=== PATIENT | female | born 1940 | race Caucasian/White ===

== ENCOUNTER 2020-04-18 10:31 | Outpatient (CLI) | payer MEDICARE, SELFPAY ==
--- NOTE | ~2020-04-18 | MM_ITS ---
EXAMINATION: MM screening prudence BI w michael HISTORY: Screening mammogram TECHNIQUE: Craniocaudal and mediolateral oblique 3-D tomosynthesis images were obtained and synthetic 2-D images were generated. CAD analysis was submitted and interpreted. COMPARISON: 04/17/2019 diagnostic right digital mammogram and limited right breast ultrasound 04/11/2019, 03/10/2018, 02/27/2016 bilateral digital screening mammogram examinations BREAST PARENCHYMAL COMPOSITION: There are scattered areas of fibroglandular density. FINDINGS: Bilateral benign calcifications. New 3.8 mm mass is noted in the anterior aspect of the upper outer quadrant of the right breast (cran ial caudal Tomosynthesis image /; MLO Tomosynthesis image /). Diagnostic right mammogram and right breast ultrasound examination are recommended. Otherwise there is no evidence of suspicious mass, calcification, or architectural distortion to sugg est malignancy in either breast. There has been no other suspicious interval change. IMPRESSION: 1. New 3.8 mm anterior upper outer quadrant right breast mass. 2. Recommend diagnostic right mammogram and right breast ultrasound examination. BI-RADS Category 0: Incomplete: Needs additional imaging evaluation. Reviewed, dictated and finalized at location A. IMPRESSION: 1. New 3.8 mm anterior upper outer quadrant right breast mass. 2. Recommend diagnostic right mammogram and right breast ultrasound examination . BI-RADS Category 0: Incomplete: Needs additional imaging evaluation.
== END 2020-04-18 10:32 | disposition home or self-care (01) ==
PROVIDERS: PCP Internal Medicine; Visit Provider Internal Medicine
DX: Z12.31 Encounter for screening mammogram for malignant neoplasm of breast (principal)
CPT/HCPCS: 77063; 77067

== ENCOUNTER 2020-04-29 09:47 | Outpatient (CLI) | payer MEDICARE, OTHER, SELFPAY ==
--- NOTE | ~2020-04-29 | MMUS_ITS ---
EXAMINATION: MM diagnostic prudence RT w michael, US breast RT limited HISTORY: Right breast mass on screening mammogram TECHNIQUE: Additional 3-D tomosynthesis images of the right breast were performed and synthetic 2-D i mages were generated. CAD analysis was submitted and interpreted. High resolution limited right breas t ultrasound was performed. COMPARISON: 04/18/2020, 04/17/2019, 04/11/2019, 03/14/2018, 02/27/2016 FINDINGS: MAMMOGRAPHIC FINDINGS: There is a 5 mm oval, obscured, equal density mass in the anterior third of the breast at the 11:00 l ocation 4 cm from the nipple. With spot compression, this has an appearance similar to comparison prudence mograms. There is no architectural distortion or suspicious calcification. ULTRASOUND: There are two adjacent cysts of the breast at the 10:00 location 3 cm from the nipple which do not de monstrate significant interval change since the comparison examination. No suspicious mass is identif ied. IMPRESSION: 1. Right breast cysts corresponding to the mass described on screening mammogram. 2. Recommend routine screening mammography in one year. BI-RADS Category 2: Benign finding(s). Reviewed, dictated and finalized at location A. SURVEYOR IMPRESSION: 1. Right breast cysts corresponding to the mass described on screening mammogra m. 2. Recommend routine screening mammography in one year. BI-RADS Category 2: Benign finding(s).
== END 2020-04-29 09:48 | disposition home or self-care (01) ==
LOC: CHSIMG 09:48
PROVIDERS: PCP Internal Medicine; Visit Provider Internal Medicine
DX: R92.8 Other abnormal and inconclusive findings on diagnostic imaging of breast (principal)
CPT/HCPCS: 76642; 77061; 77065; G0279

== ENCOUNTER 2021-05-02 07:13 | Outpatient (CLI) | payer MEDICARE, OTHER, SELFPAY ==
--- NOTE | ~2021-05-02 | MM_ITS ---
EXAMINATION: MM screening prudence BI w michael HISTORY: Screening mammogram TECHNIQUE: Craniocaudal and mediolateral oblique 3-D tomosynthesis images were obtained and synthetic 2-D images were generated. CAD analysis was submitted and interpreted. COMPARISON: 04/29/2020 diagnostic right mammogram and limited right breast ultrasound 04/18/2020 bilateral screening mammogram 04/17/2019 diagnostic right mammogram and right breast ultrasound 04/11/2019, 03/10/2018 bilateral screening mammogram examinations BREAST PARENCHYMAL COMPOSITION: FINDINGS: There is a circumscribed approximately 3.8 mm opacity anteriorly in the inner aspect of the upper outer right breast, stable since 03/10/2018. Scattered bilateral benign calcifications. There is no evidence of suspicious mass, calcification, or architectural distortion to suggest malignancy in either breast. There has been no suspicious interv al change. IMPRESSION: 1. No mammographic evidence of malignancy. 2. Recommend routine screening mammography in one year. BI-RADS Category 2: Benign finding(s). Reviewed, dictated and finalized at location A. R HELPER
== END 2021-05-02 07:14 | disposition home or self-care (01) ==
LOC: CHSIMG 07:15
PROVIDERS: PCP Internal Medicine; Visit Provider Internal Medicine
DX: Z12.31 Encounter for screening mammogram for malignant neoplasm of breast (principal)
CPT/HCPCS: 77063; 77067

== ENCOUNTER 2021-08-03 21:34 | Emergency (ER) | payer MEDICARE, OTHER, SELFPAY ==
--- NOTE | ~2021-08-03 | CT_ITS ---
EXAMINATION: CT facial bones wo con DATE: 08/03/2021 22:37 INDICATION: Left facial injury. TECHNIQUE: Computed tomography (CT) of the facial bones and maxillofacial region was performed withou t intravenous contrast. Automated exposure control and iterative reconstruction technique were employ ed. The dose-length product was 316.29 mGy-cm. COMPARISON: None. FINDINGS: There is left periorbital hematoma and soft tissue swelling. There are blowout fractures of medial wall and floor of left orbit. There is a small volume of hematoma in the left ethmoid and max illary sinuses. There is leftward deviation of the nasal septum. There is moderate cervical spondylos is. IMPRESSION: 1. Blowout fractures of the medial wall and floor of left orbit. Reviewed, dictated and finalized at location A. ATRIC RADIOLOGIST
--- NOTE | ~2021-08-03 | CT_ITS ---
EXAMINATION: CT brain wo con DATE: 08/03/2021 22:37 INDICATION: Left head injury. TECHNIQUE: Computed tomography (CT) of the head was performed without intravenous contrast. The mA wa s adjusted according to patient size. Iterative reconstruction technique was employed. The dose-lengt h product was 529.67 mGy-cm. COMPARISON: None FINDINGS: There is no intracranial hemorrhage, acute infarction, or abnormal intracranial mass lesion . There are scattered areas of low attenuation in the cerebral white matter, which is within normal l imits for the patient's age. The ventricles are normal in size. There is left periorbital soft tissue swelling. There is a blowout fracture of medial wall of left orbit. The mastoid air cells are normal . IMPRESSION: 1. Normal aging brain. 2. Blowout fracture of medial wall of left orbit. Reviewed, dictated and finalized at location A. ANALYST
[2021-08-03 21:40] VITALS: BP 190/78; PULSE 72; RESP 20; TEMP 36.3; O2SAT 96
--- NOTE | 2021-08-03 21:55 | ED.FALL ---
HPI - Fall General Chief Complaint: Head Injury Stated Complaint: fell/injury above eye Source: patient, family and RN notes reviewed Mode of arrival: ambulatory Limitations: no limitations History of Present Illness HPI Narrative: Patient was walking out of a family house through the garage and tripped over a basket ball falling onto her left face. Swelling to her left eyebrow and abrasion over her left temporal area. complaint: fall Onset (ago): minute(s) (30) Fall from: standing Fall witnessed: yes, by family Place fall occurred: home Loss of consciousness: none Context: tripped/slipped ( Over basketball in the garage) Location of injury: head and face Severity: mild Quality: dull and aching Associated symptoms (after fall): headache Related Data Home Medications Medication Instructions Recorded Confirmed hydrochlorothiazide 25 mg PO DAILY 08/03/21 08/03/21 latanoprost 1 drp EACH EYE DAILY 08/03/21 08/03/21 losartan 100 mg PO DAILY 08/03/21 08/03/21 montelukast 10 mg PO DAILY 08/03/21 08/03/21 Allergies Allergy/AdvReac Type Severity Reaction Status Date / Time No Known Allergies Allergy Verified 08/03/21 21:59 Review of Systems Review of Systems: All systems reviewed & are unremarkable except as noted in HPI and below PMFSH Past Medical History Medical History (Updated 08/03/21 @ 22:53 by Jorge Smith MD) Glaucoma Hypertension Surgical History Surgical History (Updated 08/03/21 @ 22:02 by Jorge Smith MD) H/O hysterectomy for benign disease Hx of cholecystectomy Social History Social History (Updated 08/03/21 @ 22:02 by Jorge Smith MD) Smoking status: Never smoker Exam Const: General: healthy appearing, no acute distress and alert Nutritional Appearance: well nourished and obese centrally obese Orientation/consciousness: patient oriented x3 HENMT: Head: normal to inspection and normocephalic Ears: external ears normal and TM's normal bilaterally General nose exam: Normal external nose present and Normal nares present Face and sinus: abrasion on the left (left temporal), ecchymosis on the left periorbital and Facial tenderness on exam of face and sinuses on the left periorbital Eyes: Conjunctivae: conjunctivae normal Pupils: Equal, round and reactive pupils present EOM: EOMs intact bilaterally Neck: Neck: normal visual inspection Resp: Effort & Inspection: normal respiratory effort Auscultation: clear to auscultation bilaterally Cardio: Rate: regular rate Rhythm: regular rhythm GI: GI Palp: Yes Soft to palpation and No Tenderness to palpation present (GI) Auscultation: normal bowel sounds Back/Spine/Pelvis: Cervical Spine: cervical ROM normal Thoracic/Lumbar Spine: thoraco-lumbar ROM normal Skin: General skin exam: normal color Rashes: no rashes Neuro: General: patient oriented x3, moves all extremities, no focal motor deficits and CN's II-XI intact bilaterally Speech: normal speech Gait exam (Neuro): Normal gait present Extrem: General: normal to inspection and no clubbing, cyanosis or edema Psych: Appearance: grossly normal and well kempt Mental Status: mental status grossly normal Affect: normal affect Attitude: cooperative Thought content: Yes Normal thought content present Course Vital Signs Vital signs: Vital Signs Temperature 36.3 C L 08/03/21 21:40 Pulse Rate 72 08/03/21 21:40 Respiratory Rate 20 08/03/21 21:40 Blood Pressure 190/78 H 08/03/21 21:40 Pulse Oximetry 96 08/03/21 21:40 Temperature 36.2 C L 08/03/21 23:10 Pulse Rate 87 08/03/21 23:10 Respiratory Rate 18 08/03/21 23:10 Blood Pressure 166/87 H 08/03/21 23:10 Pulse Oximetry 97 08/03/21 23:10 Discharge Plan Discharge Clinical Impression: Orbital fracture Qualifiers: Encounter type: initial encounter Fracture type: closed Qualified Code(s): S02.85XA - Fracture of orbit, unspecified, initial encounter for closed fracture Patient Dispos
[2021-08-03] MEDS: NEOMYCIN/POLYMYXIN/BACITRACIN OINTMENT PACKET 1 PACKET (22:20)
[2021-08-03] MEDS: AMOXICILLIN/CLAVULANATE K 875-125 MG TAB 1 TABLET PO (23:00)
[2021-08-03 23:10] VITALS: BP 166/87; PULSE 87; RESP 18; TEMP 36.2; O2SAT 97
== END 2021-08-03 23:12 | disposition home or self-care (01) ==
PROVIDERS: Emergency Provider Emergency Medicine; PCP Internal Medicine
DX: S02.85XA Fracture of orbit, unspecified, initial encounter for closed fracture (principal); W01.0XXA Fall on same level from slipping, tripping and stumbling without subsequent striking against object, initial encounter; I10 Essential (primary) hypertension
CPT/HCPCS: 70450; 70486; 99284; A9270

== ENCOUNTER 2021-10-10 09:30 | Outpatient (CLI) | payer MEDICARE, OTHER, SELFPAY ==
[2021-10-10 10:24] LABS: SARS-CoV-2 RNA PCR Positive (Negative)
== END 2021-10-10 09:31 | disposition home or self-care (01) ==
LOC: CHSLAB 09:33
PROVIDERS: PCP Internal Medicine; Visit Provider Internal Medicine
DX: U07.1 COVID-19 (principal)
CPT/HCPCS: C9803; U0003; U0005

== ENCOUNTER 2021-11-03 09:50 | Outpatient (CLI) | payer MEDICARE, OTHER, SELFPAY ==
--- NOTE | 2021-11-03 10:03 | ECG_ITS ---
Measurements Intervals [place] Rate: 71 P: 55 [place]: 217 QRS: -23 QRSD: 133 T: 26 QT: 452 QTc: 494 Interpretive Statements SINUS RHYTHM WITH FIRST DEGREE AV BLOCK RIGHT BUNDLE BRANCH BLOCK BASELINE ARTIFACT- II, III, AVR, AVF, V5-V6 ABNORMAL ECG Electronically Signed On 11-03-2021 11:25:41 CDT by Leroy Cheung D.O.
== END 2021-11-03 09:51 | disposition home or self-care (01) ==
LOC: CHSCARD 09:54
PROVIDERS: PCP Internal Medicine; Visit Provider Internal Medicine
DX: E78.5 Hyperlipidemia, unspecified (principal); E11.9 Type 2 diabetes mellitus without complications; I10 Essential (primary) hypertension; R01.1 Cardiac murmur, unspecified
CPT/HCPCS: 93005

== ENCOUNTER 2021-11-14 13:16 | Outpatient (CLI) | payer MEDICARE, OTHER, SELFPAY ==
--- NOTE | 2021-11-14 13:30 | ECHO_ITS ---
Patient Info Name: Sylvie Barrientos Age: 81 years : 1940 Gender: Female Ht: 65 in Wt: 190 lbs BSA: 2.02 m2 HR: 73 bpm BP: 211 / 76 mmHg Technical Quality: Fair Exam Date: 11/14/2021 1:28 PM Exam Location: [facility] Patient Status: Outpatient Admit Date: 11/14/2021 Staff Ordering Physician: Jovanny Rea MD Donor Recruitment Manager: Kishor Barber, CAL, RT Attending Provider: Jovanny Rea MD Exam Type: CA echo doppler color flow Study Info Indications R01.1 - Cardiac murmur, unspecified Complete two-dimensional, color flow and Doppler transthoracic echocardiogram is performed. Strain analysis performed. Summary 1. Complete two-dimensional, color flow and Doppler transthoracic echocardiogram is performed. 2. Left ventricular chamber dimension is normal. 3. Left ventricular systolic function is normal, estimated at 65-70%. 4. There is mildly increased left ventricular wall thickness. 5. The left ventricular diastolic function is grade I diastolic dysfunction. 6. E/e' 10 is mildly elevated. 7. Global longitudinal strain is normal at -19.3%. 8. There is severe aortic valve sclerosis. 9. There is moderate aortic valve stenosis with a peak velocity of 424 cm/s, mean gradient of 38 mmHg, and aortic valve area of 1.4 cm2. 10. There is mild aortic valve regurgitation. 11. The mitral valve has moderately calcified leaflets and mildly calcified annulus. 12. There is mild mitral valve regurgitation. 13. There is mild tricuspid valve regurgitation. 14. Mild pulmonary hypertension, estimated pulmonary arterial systolic pressure is 48 mmHg. 15. There is mild pulmonic regurgitation. Left Ventricle E/e' 10 is mildly elevated. Global longitudinal strain is normal at -19.3%. Left ventricular chamber dimension is normal. Left ventricular systolic function is normal, estimated at 65-70%. There is mildly increased left ventricular wall thickness. The left ventricular diastolic function is grade I diastolic dysfunction. Right Ventricle Right ventricular systolic function is normal and with normal TAPSE 2.9 cm. Right ventricular chamber dimension is normal. Left Atria Left atrial chamber dimension is normal. Right Atria Right atrial chamber dimension is normal. Aortic Valve The aortic valve is probable trileaflet. There is severe aortic valve sclerosis. There is moderate aortic valve stenosis with a peak velocity of 424 cm/s, mean gradient of 38 mmHg, and aortic valve area of 1.4 cm2. There is mild aortic valve regurgitation. Pulmonic Valve There is mild pulmonic regurgitation. Mitral Valve The mitral valve has moderately calcified leaflets and mildly calcified annulus. There is no mitral valve stenosis. There is mild mitral valve regurgitation. Tricuspid Valve There is mild tricuspid valve regurgitation. Mild pulmonary hypertension, estimated pulmonary arterial systolic pressure is 48 mmHg. Pericardium/Pleural There is no pericardial effusion. Inferior Vena Cava Normal inferior vena cava with >50% collapse upon inspiration consistent with normal right atrial pressure, 5 mmHg. Aorta The aortic root size at the sinus of Valsalva is normal. Left Ventricular Outflow Tract Name Value Normal LVOT 2D L
== END 2021-11-14 13:17 | disposition home or self-care (01) ==
LOC: CHSIMG 13:19
PROVIDERS: PCP Internal Medicine; Visit Provider Internal Medicine
DX: R01.1 Cardiac murmur, unspecified (principal); E11.9 Type 2 diabetes mellitus without complications; I10 Essential (primary) hypertension; E78.5 Hyperlipidemia, unspecified
CPT/HCPCS: 93306

== ENCOUNTER 2022-06-01 08:13 | Outpatient (CLI) | payer MEDICARE, OTHER, SELFPAY ==
--- NOTE | ~2022-06-01 | MM_ITS ---
EXAMINATION: MM screening [facility] BI w michael HISTORY: Screening TECHNIQUE: Craniocaudal and mediolateral oblique 3-D tomosynthesis images were obtained and synthetic 2-D images were generated. CAD analysis was submitted and interpreted. COMPARISON: Comparison to multiple prior studies sequentially, with oldest reviewed study dated 03/14. BREAST PARENCHYMAL COMPOSITION: There are scattered areas of fibroglandular density. FINDINGS: Stable benign-appearing nodule in the upper outer quadrant of the right breast anteriorly. There is no evidence of suspicious mass, calcification, or architectural distortion to suggest malign vladimir in either breast. There has been no suspicious interval change. IMPRESSION: 1. No mammographic evidence of malignancy. 2. Recommend routine screening mammography in one year. BI-RADS Category 2: Benign finding(s). Reviewed, dictated and finalized at location B. STRESS FITTER
== END 2022-06-01 08:14 | disposition home or self-care (01) ==
LOC: CHSIMG 08:15
PROVIDERS: PCP Internal Medicine; Visit Provider Internal Medicine
DX: Z12.31 Encounter for screening mammogram for malignant neoplasm of breast (principal)
CPT/HCPCS: 77063; 77067

== ENCOUNTER 2022-11-02 12:23 | Outpatient (CLI) | payer MEDICARE, OTHER, SELFPAY ==
--- NOTE | 2022-11-02 01:00 | ECHO_ITS ---
Patient Info Name: Sylvie Barrientos Age: 82 years : 1940 Gender: Female Ht: 63 in Wt: 180 lbs BSA: 1.94 m2 HR: 68 bpm BP: 195 / 92 mmHg Heart Rhythm: Sinus Rhythm Technical Quality: Fair Exam Date: 11/02/2022 12:20 PM Exam Location: [facility] Patient Status: Outpatient Admit Date: 11/02/2022 Staff Ordering Physician: Leroy Cheung DO Net Developer With Wcf: Jayla Greenfield RDCS Attending Provider: Leroy Cheung DO Referring Physician: Jonatan MOSQUERA; Exam Type: CA echo doppler color flow Study Info Indications I35.0 - Nonrheumatic aortic (valve) stenosis Complete two-dimensional, color flow and Doppler transthoracic echocardiogram is performed. Summary 1. Complete two-dimensional, color flow and Doppler transthoracic echocardiogram is performed. 2. Left ventricular chamber dimension is normal. 3. Left ventricular systolic function is hyperdynamic, estimated at >70%. 4. The left ventricular diastolic function is grade I diastolic dysfunction. 5. E/e' 13 is mildly elevated. 6. Left atrial chamber dimension is mildly enlarged. 7. The aortic valve is not well visualized. Probably trileaflet aortic valve. 8. There is moderate to severe aortic valve stenosis based on a peak velocity of 441 cm/s, mean gradient of 48 mmHg, and aortic valve area of 1.2 cm2. 9. There is severe aortic valve sclerosis. 10. There is mild aortic valve regurgitation. 11. The mitral valve has moderately calcified annulus. 12. There is mild to moderate tricuspid valve regurgitation. 13. Mild pulmonary hypertension, estimated pulmonary arterial systolic pressure is 43 mmHg. 14. There is mild pulmonic regurgitation. Left Ventricle E/e' 13 is mildly elevated. Left ventricular chamber dimension is normal. Left ventricular systolic function is hyperdynamic, estimated at >70%. The left ventricular diastolic function is grade I diastolic dysfunction. Right Ventricle Right ventricular systolic function is normal and with normal TAPSE 2.1 cm. Right ventricular chamber dimension is normal. Left Atria Left atrial chamber dimension is mildly enlarged. Right Atria Right atrial chamber dimension is normal. Aortic Valve The aortic valve is not well visualized. Probably trileaflet aortic valve. There is moderate to severe aortic valve stenosis based on a peak velocity of 441 cm/s, mean gradient of 48 mmHg, and aortic valve area of 1.2 cm2. There is severe aortic valve sclerosis. There is mild aortic valve regurgitation. Pulmonic Valve There is mild pulmonic regurgitation. Mitral Valve The mitral valve has moderately calcified annulus. There is no mitral valve stenosis. There is no mitral valve regurgitation. Tricuspid Valve There is mild to moderate tricuspid valve regurgitation. Mild pulmonary hypertension, estimated pulmonary arterial systolic pressure is 43 mmHg. Pericardium/Pleural There is no pericardial effusion. Inferior Vena Cava Normal inferior vena cava with >50% collapse upon inspiration consistent with normal right atrial pressure, 5 mmHg. Aorta The aortic root size at the sinus of Valsalva is normal. Left Ventricular Outflow Tract Name Value Normal LVOT 2D LVOT Diameter 2.0 cm LVOT Doppler LVOT Peak Velocity
== END 2022-11-02 12:24 | disposition home or self-care (01) ==
LOC: CHSIMG 12:25
PROVIDERS: PCP Internal Medicine; Visit Provider Internal Medicine Cardiovascular Disease
DX: I35.0 Nonrheumatic aortic (valve) stenosis (principal); I27.20 Pulmonary hypertension, unspecified; I37.1 Nonrheumatic pulmonary valve insufficiency
CPT/HCPCS: 93306

== ENCOUNTER 2023-06-04 07:20 | Outpatient (CLI) | payer MEDICARE, OTHER, SELFPAY ==
--- NOTE | ~2023-06-04 | MM_ITS ---
EXAMINATION: MM screening prudence BI w michael HISTORY: Screening mammogram TECHNIQUE: Craniocaudal and mediolateral oblique 3-D tomosynthesis images were obtained and synthetic 2-D images were generated. CAD analysis was submitted and interpreted. COMPARISON: 06/01/2022, 05/02/2021, 04/29/2020 BREAST PARENCHYMAL COMPOSITION:There are scattered areas of fibroglandular density. FINDINGS: No suspicious mass, calcification, or architectural distortion are identified in either freddy ast to suggest malignancy. There has been no suspicious interval change. IMPRESSION: No mammographic evidence of malignancy. Recommend routine screening mammography in one year. BI-RADS Category 1: Negative Reviewed, dictated and finalized at location . ATRIC IMMUNOLOGIST
== END 2023-06-04 07:21 | disposition home or self-care (01) ==
LOC: CHSIMG 07:23
PROVIDERS: PCP Internal Medicine; Visit Provider Internal Medicine
DX: Z12.31 Encounter for screening mammogram for malignant neoplasm of breast (principal)
CPT/HCPCS: 77063; 77067

== ENCOUNTER 2023-08-03 15:42 | Outpatient (CLI) | payer MEDICARE, OTHER, SELFPAY ==
--- NOTE | ~2023-08-03 | XR_ITS ---
XR hand RT min 3V DATE: 08/03/2023 16:04 INDICATION: Acute right hand pain TECHNIQUE: 3 views COMPARISON: None FINDINGS: There is osteopenia. There is chondrocalcinosis at the triangular cartilage and wrist joints. Severe osteoarthritic changes noted at the triscaphe joint. There is mild osteoarthritic arthritis at the first carpometacarpal, first metacarpophalangeal joint and more prominent osteoarthritic change at the second and third metacarpophalangeal joints and particularly severe osteoarthritic change at m ultiple interphalangeal joints, most notably of the proximal interphalangeal joint of the third digit where there is severe joint space narrowing, periarticular spurring, degenerative cyst formation, wi th surrounding soft tissue swelling. No fracture or dislocation, periosteal reaction or bone destruction is detected. No erosive change is noted. IMPRESSION: Prominent polyarticular osteophyte is Osteopenia Chondrocalcinosis Reviewed, dictated and finalized at location L. INUITY WRITER
== END 2023-08-03 15:43 | disposition home or self-care (01) ==
LOC: CHSIMG 15:45
PROVIDERS: PCP Internal Medicine; Visit Provider Internal Medicine
DX: M19.041 Primary osteoarthritis, right hand (principal); M85.88 Other specified disorders of bone density and structure, other site; M11.241 Other chondrocalcinosis, right hand
CPT/HCPCS: 73130

== ENCOUNTER 2023-10-25 08:23 | Outpatient (CLI) | payer MEDICARE, OTHER, SELFPAY ==
--- NOTE | 2023-10-25 08:32 | ECHO_ITS ---
Patient Info Name: Sylvie Barrientos Age: 83 years : 1940 Gender: Female Ht: 60 in Wt: 180 lbs BSA: 1.90 m2 HR: 70 bpm Heart Rhythm: Sinus Rhythm Technical Quality: Good Exam Date: 10/25/2023 8:31 AM Exam Location: Echo Lab Patient Status: Outpatient Admit Date: 10/25/2023 Staff Ordering Physician: Leroy Cheung DO Hog Tender: Pako Xavier RDCS Attending Provider: Leroy Cheung DO Referring Physician: Jonatan MOSQUERA; Exam Type: CA echo doppler color flow Study Info Indications - NONRHEUMATIC AORTIC VALVE STENOSIS Complete two-dimensional, color flow and Doppler transthoracic echocardiogram is performed. Summary 1. Complete two-dimensional, color flow and Doppler transthoracic echocardiogram is performed. 2. Left ventricular chamber dimension is normal. 3. Left ventricular systolic function is normal, estimated at 65-70%. 4. The left ventricular diastolic function is grade I diastolic dysfunction. 5. E/e' 11 is mildly elevated. 6. Left atrial chamber dimension is mildly enlarged. 7. Right atrial chamber dimension is mildly enlarged. 8. There is severe aortic valve sclerosis. 9. There is trace aortic valve regurgitation. 10. There is moderate to severe aortic valve stenosis with valve area of 1.1 cm2, mean gradient of 40 mmHg, and peak velocity of 3.1 m/s. 11. The mitral valve has mildly calcified annulus. 12. There is trace tricuspid valve regurgitation. Left Ventricle E/e' 11 is mildly elevated. Left ventricular chamber dimension is normal. Left ventricular systolic function is normal, estimated at 65-70%. The left ventricular diastolic function is grade I diastolic dysfunction. Right Ventricle Right ventricular systolic function is normal and with normal TAPSE 2.8 cm. Right ventricular chamber dimension is normal. Left Atria Left atrial chamber dimension is mildly enlarged. Right Atria Right atrial chamber dimension is mildly enlarged. Aortic Valve There is moderate to severe aortic valve stenosis with valve area of 1.1 cm2, mean gradient of 40 mmHg, and peak velocity of 3.1 m/s. The aortic valve is trileaflet. There is severe aortic valve sclerosis. There is trace aortic valve regurgitation. Pulmonic Valve There is no pulmonic regurgitation. Mitral Valve The mitral valve has mildly calcified annulus. There is no mitral valve stenosis. There is no mitral valve regurgitation. Tricuspid Valve No pulmonary hypertension, estimated pulmonary arterial systolic pressure is 29 mmHg. There is trace tricuspid valve regurgitation. Pericardium/Pleural There is no pericardial effusion. Inferior Vena Cava Normal inferior vena cava with >50% collapse upon inspiration consistent with normal right atrial pressure, 5 mmHg. Aorta The aortic root size at the sinus of Valsalva is normal. Tricuspid Valve Name Value Normal Estimated PAP/RSVP RA Pressure 5 mmHg <=5 Report Signatures
== END 2023-10-25 08:24 | disposition home or self-care (01) ==
LOC: CHSIMG 08:26
PROVIDERS: PCP Internal Medicine; Visit Provider Internal Medicine Cardiovascular Disease
DX: I35.0 Nonrheumatic aortic (valve) stenosis (principal)
CPT/HCPCS: 93306

== ENCOUNTER 2024-05-25 08:39 | Outpatient (CLI) | payer MEDICARE, OTHER, SELFPAY ==
--- NOTE | ~2024-05-25 | US_ITS ---
EXAMINATION: US aorta [facility] scr[facility] DATE: 05/25/2024 09:08 INDICATION: Abdominal aortic aneurysm screening. TECHNIQUE: Grayscale, color Doppler, and pulsed Doppler images of the aorta and common iliac arteries were obtained. COMPARISON: None. FINDINGS: The aorta is normal in caliber. The right common iliac artery is normal in caliber. The left common i liac artery is normal in caliber. IMPRESSION: 1. No abdominal aortic aneurysm. Reviewed, dictated and finalized at location A. 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
--- NOTE | ~2024-05-25 | XR_ITS ---
EXAMINATION: XR chest 2V 05/25/2024 09:13 INDICATION: Shortness of breath PROCEDURE: 2 view chest COMPARISON: Comparison to multiple prior studies sequentially, with oldest reviewed study dated 08/18. FINDINGS: The lungs are clear. Calcified granuloma right lower lung. The cardiomediastinal silhouette is within normal limits. There are no pleural effusions. There is no pneumothorax suspected. Mode rate thoracic spondylosis with accentuated kyphosis and scoliosis. IMPRESSION: 1: NO ACUTE CARDIOPULMONARY DISEASE. Reviewed, dictated and finalized at location B. WORKER OR ESCORT
== END 2024-05-25 08:40 | disposition home or self-care (01) ==
PROVIDERS: PCP Internal Medicine; Visit Provider Internal Medicine
DX: L92.8 Other granulomatous disorders of the skin and subcutaneous tissue (principal); Z13.6 Encounter for screening for cardiovascular disorders
CPT/HCPCS: 71046; 76706

== ENCOUNTER 2024-06-20 13:06 | Outpatient (CLI) | payer MEDICARE, OTHER, SELFPAY ==
--- NOTE | ~2024-06-20 | MM_ITS ---
EXAMINATION: MM screening prudence BI w michael HISTORY: Screening mammogram TECHNIQUE: Craniocaudal and mediolateral oblique 3-D tomosynthesis images were obtained and synthetic 2-D images were generated. CAD analysis was submitted and interpreted. COMPARISON: 06/04/2023, 06/01/2022 BREAST PARENCHYMAL COMPOSITION:Not Dense. The breasts are almost entirely fatty FINDINGS: No suspicious mass, calcification, or architectural distortion are identified in either freddy ast to suggest malignancy. There has been no suspicious interval change. IMPRESSION: No mammographic evidence of malignancy. Recommend routine screening mammography in one year. BI-RADS Category 1: Negative Reviewed, dictated and finalized at location .
== END 2024-06-20 13:07 | disposition home or self-care (01) ==
LOC: CHSIMG 13:10
PROVIDERS: PCP Internal Medicine; Visit Provider Internal Medicine
DX: Z12.31 Encounter for screening mammogram for malignant neoplasm of breast (principal)
CPT/HCPCS: 77063; 77067

== ENCOUNTER 2024-10-25 11:12 | Outpatient (CLI) | payer MEDICARE, OTHER, SELFPAY ==
--- NOTE | ~2024-10-25 | XR_ITS ---
XR knee RT 3V Ordering provider: Jovanny Rea MD History: . Medial RT knee pain, chronic, getting worse . Comparison: None. FINDINGS: BONES: No acute fracture or dislocation. JOINT SPACES: Severe narrowing of the medial compartment. Marginal osteophytes are noted in the knee and patella. SOFT TISSUES: Normal. IMPRESSION: No acute osseous abnormality right knee. Severe osteoarthritic changes. Reviewed, dictated and finalized at location A.
--- OUTSIDE RECORDS SUMMARY | 2024-10-25 12:01 | XMS_ITS | Clinical Summary ---
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 Gender Identity Not on file Sexual Orientation Not on file Plan of Treatment Health Maintenance Due Date Last Done Comments DTaP, Tdap and Td Vaccines ( 1 - Tdap) 1957 Pneumococcal Vaccine: 50+ Ye ars (1 of 1 - PCV) 1988 Zoster Vaccines (1 of 2) 1988 RSV Immunization or 60+ Years (1 - 1-dose 75+ series) 2013 COVID-19 Vaccine ( - 2023-2 5 season) 2024 Meningococcal B Vaccine Aged Out No l onger eligible based on patient's age to complete this topic Meningococcal Vaccine Aged Out No yolanda sho eligible based on patient's age to complete this topic RSV Immunizations Under 20 Months Aged Out No longer eligible based on patient's age to complete this topic
--- OUTSIDE RECORDS SUMMARY | 2024-10-25 12:01 | XMS_ITS | Continuity of Care Document ---
Author Organization [facility] Address [address] [place] [address] [place] [address] Phone Care Team Providers Care Drawer In Name Role Phone Jef Choi MD Unavailable [...] Report Eye Exam & Treatment Office/outpatient Visit, [facility] Advance Directives Directive Yes / No Effective Date File Name No Information Encounters Encounter Description Practice Location Reason(s) For Visit Diagnoses Date Provider Providers Copied on Encounter Office/outpa tient Visit, Est [facility], [address], [place], [place], [id number], [place] tel:[phone] SEC Avery MORAN Professional Dilated exam (chief complaint) Open fracture of left orbit with routine healing, subsequent encounterPrima ry open-angle glaucoma, bilateral, moderate stage 2 Jimbo Fuchs. [address] [facility], [address], [place], [place], [id number], . tel:[phone] Referring Provider: Gilberto Renetta OD, [address] [place] [address], [address]. tel:[phone] [facility], [address], [place], [place], [id number], tel:[phone] SEC Avery MORAN Professional Complete Exam (chief complaint) Primary open-angle glaucoma, bilateral, mild stageOpen fracture of left orbit with routine healing, subsequent encounterAge-r elated nuclear cataract, bilateralMacul ar drusen, left 2 Jimbo Fuchs. [address], [facility] [place], [id number], . tel:[phone] Referring Provider: Gilberto Jackson OD, [address] [place] [address], [address]. tel:[phone] Office/outpa tient Visit, [facility], [address], [place], [place], [id number], [place] tel:[phone] SEC Avery DEAN Professional WIE (chief complaint) Primary open-angle glaucoma, bilateral, mild stageOpen fracture of left orbit, initial encounterOpen fracture of medial wall of left orbit, initial encounter 2 Jimbo Fuchs. [address], [facility] [address], [place], [place], [id number], . tel:[phone] Referring Provider: Gilberto Jackson OD, [address] [place] [address], [address]. tel:[phone] Family History Family Member Type Diagnosis Age At Onset No Information Payers Payer name Insurance type Covered libertarian ID Authorniaa tiangy(s) [place] MB [id number] [facility] [id number] Social History Type Description Quantity Date Captured [...] qhs.Pt states the brow over OS is dye tank tender and a little swollen. Pt denies [...] qhs.Pt states the brow over OS is dye tank tender and a little swollen. Pt denies [...]
== END 2024-10-25 11:13 | disposition home or self-care (01) ==
PROVIDERS: PCP Internal Medicine; Visit Provider Internal Medicine
DX: M25.561 Pain in right knee (principal); M17.11 Unilateral primary osteoarthritis, right knee
CPT/HCPCS: 73562

== ENCOUNTER 2024-11-23 07:22 | Outpatient (CLI) | payer MEDICARE, OTHER, SELFPAY ==
--- OUTSIDE RECORDS SUMMARY | 2024-11-23 07:27 | XMS_ITS | Referral Summary ---
Author Organization [facility] Address [address] [place] [address] Care Team Providers Care Phlebotomist Lab Assistant Name Role Phone Jovanny Rea MD Primary Care Provider [phone] Allergies No known active allergies Medications losartan-hydroc hlorothiazide (HYZAAR) 100-25 mg per tablet 8 Active KLOR-CON M20 20 mEq CR tablet 8 Active montelukast (SINGULAIR) 10 mg tablet 8 Active pravastatin (PRAVACHOL) 10 mg tablet 8 Active predniSONE (DELTASONE) 10 mg tabletIndicatio ns:Irritant contact dermatitis due to cosmetics Take 4 tabs day 1 & 2, 3 tabs days 3 & 4, 2 tabs days 5 & 6, 1 tab days 7-10 22 tablet 3 Active triamcinolone (KENALOG) 0.1 % creamIndication s:Irritant contact dermatitis due to cosmetics Apply to affected area 1-2 times daily as needed. 30 g 5 3 Active hydroCHLOROthia zide (HYDRODIURIL) 25 mg tablet 3 Active methylPREDNISol one (MEDROL DOSEPACK) 4 mg Dosepack TAKE 6 TABLETS ON DAY 1 DIRECTED ON PACKAGE AND DECREASE BY 1 TAB EACH DAY FOR A TOTAL OF 6 DAYS 3 Active Paxlovid tablets,dose pack tablets in a dose pack TAKE BY ORAL ROUTE 2 TIMES PER DAY PER PACKAGE DIRECTIONS FOR 5 DAYS 3 Active oseltamivir (TAMIFLU) 75 mg capsule Take 1 capsule (75 mg total) by mouth 2 (two) times a day 3 Active Active Problems Problem Noted Date Diagnosed Date Encounter for screening colonoscopy 04/30/2023 Screening for colon cancer 02/25/2018 Overview (02/25/2018): Added automatically from request for surgery [id number] Social History Tobacco Use Types Packs/Day Years Used Date Smoking Tobacco: Never Smokeless Tobacco: Never Tobacco Cessation:Counseling Given: Not Answered Personal Safety Answer Date Recorded Have you ever been in or are you currently in a harmful physical or emotional relationship or is someone making you feel afraid or unsafe? 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 Gender Identity Not on file Sexual Orientation Not on file Last Filed Vital Signs Vital Sign Reading Time Taken Comments Blood Pressure 160/80 07/16/2023 11:37 AM ARTIFICIAL BREEDING TECHNICIAN Pulse 73 07/16/2023 11:37 AM ARTIFICIAL BREEDING TECHNICIAN Temperature 36.9 C (98.5 F) 07/16/2023 11:37 AM ARTIFICIAL BREEDING TECHNICIAN Respiratory Rate 16 07/16/2023 11:37 AM ARTIFICIAL BREEDING TECHNICIAN Oxygen Saturation 95% 07/16/2023 11:37 AM ARTIFICIAL BREEDING TECHNICIAN Inhaled Oxygen Concentration - - Weight 79.4 kg (175 lb) 07/16/2023 9:38 AM ARTIFICIAL BREEDING TECHNICIAN Height 160 cm (5' 3) 07/16/2023 9:38 AM ARTIFICIAL BREEDING TECHNICIAN Body Mass Index 31 07/16/2023 9:38 AM ARTIFICIAL BREEDING TECHNICIAN Plan of Treatment Not on file Insurance MEDICARE FOR LIFE MEDICARE FOR LIFE Advance Directives For more information, please contact: [phone] * Full Code (Latest Code Status on File) Date Activated Date Inactivated Comments 07/16/2023 9:29 AM 07/16/2023 4:28 PM * Full Code Date Activated Date Inactivated Comments 07/16/2023 9:29 AM 07/16/2023 9:29 AM * Full Code Date Activated Date Inactivated Comments 04/12/2018 7:59 AM 04/12/2018 11:35 AM * Full Code Date Activated Date Inactivated Comments 04/12/2018 7:59 AM 04/12/2018 7:59 AM Care Teams Phlebotomist Lab Assistant Relationship Specialty Start Date End Date Jovanny Rea MD PCP - General Internal Medicine 02/25/18
--- OUTSIDE RECORDS SUMMARY | 2024-11-23 07:27 | XMS_ITS | Clinical Summary ---
Author Organization [facility] Address [address] [place] [address] Care Team Providers Care Columnist Name Role Phone Jovanny Rea MD Primary Care Provider [phone] Allergies No known active allergies Medications losartan-hydroc [...] (02/25/2018): Added automatically from request for surgery [id number] Surgical History Surgery Date Site/Laterality Comments COLONOSCOPY over 10 yrs ago CHOLECYSTECTOMY HYSTERECTOMY COLONOSCOPY 03/21/2018 - 04/20/2018 Medical History Medical History Date Comments Hypertension Hyperlipidemia Coronary artery disease Family History Medical History Relation Name Comments Colon cancer Brother Relation Name Status Comments Brother Social History Tobacco Use Types Packs/Day Years [...] on file 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 Gender Identity Not on file Sexual Orientation Not on file Obstetrics History Last Filed Vital Signs Vital Sign Reading Time Taken Comments Blood Pressure 160/80 07/16/2023 11:37 AM TAPPET ADJUSTER Pulse 73 07/16/2023 11:37 AM TAPPET ADJUSTER Temperature 36.9 C (98.5 F) 07/16/2023 11:37 AM TAPPET ADJUSTER Respiratory Rate 16 07/16/2023 11:37 AM TAPPET ADJUSTER Oxygen Saturation 95% 07/16/2023 11:37 AM TAPPET ADJUSTER Inhaled Oxygen Concentration - - Weight 79.4 kg (175 lb) 07/16/2023 9:38 AM TAPPET ADJUSTER Height 160 cm (5' 3) 07/16/2023 9:38 AM TAPPET ADJUSTER Body Mass Index 31 07/16/2023 9:38 AM TAPPET ADJUSTER Plan of Treatment Health Maintenance Due Date Last Done Comments Depression Screening 1940 Fall Risk Assessment 1940 Hepatitis B Screening 1956 Zoster Vaccine (1 of 2) 1988 Well Visit 65+ 2003 Pneumococcal vaccine 65+ (2 of 2 - PCV) 02/05/2021 02/06/2020, 12/11/2013, 06/21/2007 Covid-19 Vaccine ( - 2023-2 5 season) 2024 04/19/2022, 07/08/2021, 09/20/2020, Additional history exists Influenza Vaccine (Season Ended) 2025 03/04/2021, 03/30/2019, 02/15/2017, Additional history exists DTaP/Tdap/Td Vaccine (2 - Td or Tdap) 03/04/2031 03/04/2021 Insurance MEDICARE [employer] MEDICARE FOR LIFE Advance Directives For more information, please contact: [phone] * Full Code (Latest Code Status on File) Date Activated Date Inactivated Comments 07/16/2023 9:29 AM 07/16/2023 4:28 PM * Full Code Date Activated Date Inactivated Comments 07/16/2023 9:29 AM 07/16/2023 9:29 AM * Full Code Date Activated Date Inactivated Comments 04/12/2018 7:59 AM 04/12/2018 11:35 AM * Full Code Date Activated Date Inactivated Comments 04/12/2018 7:59 AM 04/12/2018 7:59 AM Care Teams Columnist Relationship Specialty Start Date End Date Jovanny Rea MD PCP - General Internal Medicine 02/25/18
--- OUTSIDE RECORDS SUMMARY | 2024-11-23 07:27 | XMS_ITS | Continuity of Care Document ---
Author Organization [facility] Address [address] [place] [address] [place] [address] Phone Care Team Providers Care Material Assistant Name Role Phone Jef Choi MD Unavailable Unavailable Allergies, Adverse Reactions, Alerts Substance Reaction Status Criticality No Known Allergies Active No Inform ation Medications Medication Instructions Dosage Effective Dates (start - stop) Status Comments losartan 100 mg tablet take 1 tablet by oral route every day 100 MG - Active hydrochlorothiazide 12.5 mg tablet take 1 tablet by oral route every day 12.5 MG - Active montelukast 10 mg tablet take 1 tablet b y oral route every day in the evening 10 MG - Active latanoprost 0.005 % eye drops instill 1 drop by ophthalmic route every day in both eyes in the evening 1 drop - Active Procedures Procedure Date Fundus Photography W/ Report Office/outpatient Visit, Est Fundus Photography W/ Report Eye Exam & Treatment Office/outpatient Visit, [facility] Advance Directives Directive Yes / No Effective Date File Name No Information Encounters Encounter Description Practice Location Reason(s) For Visit Diagnoses Date Provider Providers Copied on Encounter Office/outpa tient Visit, Est [facility], [address], [place], [place], [id number], [place] tel:[phone] SEC Avery MORAN Professional Dilated exam (chief complaint) Open fracture of left orbit with routine healing, subsequent encounterPrima ry open-angle glaucoma, bilateral, moderate stage 2 Jimbo Fuchs. [address] [facility], [address], [place], [place], [id number], . tel:[phone] Referring Provider: Gilberto Renetta OD, [address] [place] [address], [address]. tel:[phone] [facility], [address], [place], [place], [id number], tel:[phone] SEC Avery MORAN Professional Complete Exam (chief complaint) Primary open-angle glaucoma, bilateral, mild stageOpen fracture of left orbit with routine healing, subsequent encounterAge-r elated nuclear cataract, bilateralMacul ar drusen, left 2 Jimbo Fuchs. [address], [facility] [place], [id number], . tel:[phone] Referring Provider: Gilberto Jackson OD, [address] [place] [address], [address]. tel:[phone] Office/outpa tient Visit, [facility], [address], [place], [place], [id number], [place] tel:[phone] SEC Avery DEAN Professional WIE (chief complaint) Primary open-angle glaucoma, bilateral, mild stageOpen fracture of left orbit, initial encounterOpen fracture of medial wall of left orbit, initial encounter 2 Jimbo Fuchs. [address], [facility] [address], [place], [place], [id number], . tel:[phone] Referring Provider: Gilberto Jackson OD, [address] [place] [address], [address]. tel:[phone] Family History Family Member Type Diagnosis Age At Onset No Information Payers Payer name Insurance type Covered green party ID Authorniaa tiangy(s) [place] [id number] [facility] CI [id number] Social History Type Description Quantity Date Captured [...] qhs.Pt states the brow over OS is pressure steamer tender and a little swollen. Pt denies [...] qhs.Pt states the brow over OS is pressure steamer tender and a little swollen. Pt denies [...]
--- NOTE | 2024-11-23 07:42 | ECHO_ITS ---
Patient Info Name: Sylvie Barrientos Age: 84 years : 1940 Gender: Female Ht: 63 in Wt: 180 lbs BSA: 1.94 m2 HR: 68 bpm BP: 172 / 83 mmHg Technical Quality: Fair Exam Date: 11/23/2024 7:48 AM Patient Status: O Admit Date: 11/23/2024 Exam Type: CA echo doppler color flow Complete two-dimensional, color flow and Doppler transthoracic echocardiogram is performed. It Infrastructure Engineer: Judy Dickey Attending Provider: Leroy Cheung DO Summary 1. Complete two-dimensional, color flow and Doppler transthoracic echocardiogram is performed. 2. Left ventricular chamber dimension is normal. 3. Left ventricular systolic function is normal, estimated at 65-70. 4. There is moderate concentric increased left ventricular wall thickness. 5. The left ventricular diastolic function is grade I diastolic dysfunction. 6. E/e' 11 is mildly elevated. 7. Left atrial chamber dimension is mildly enlarged. 8. There is severe aortic valve sclerosis. 9. There is moderate aortic valve stenosis with a peak velocity of 440 cm/s, mean gradient of 52 mmHg, and aortic valve area of 1.3 cm2. 10. There is mild to moderate aortic valve regurgitation. 11. The mitral valve has mildly calcified leaflets and a mildly calcified annulus. 12. There is mild mitral valve regurgitation. 13. There is mild tricuspid valve regurgitation. 14. Mild pulmonary hypertension, estimated pulmonary arterial systolic pressure is 44 mmHg. 15. There is trace pulmonic regurgitation. Left Ventricle E/e' 11 is mildly elevated. Left ventricular chamber dimension is normal. Left ventricular systolic function is normal, estimated at 65-70. There is moderate concentric increased left ventricular wall thickness. The left ventricular diastolic function is grade I diastolic dysfunction. Right Ventricle Right ventricular chamber dimension is normal. Right ventricular systolic function is normal and with normal TAPSE 2.6 cm. Left Atria Left atrial chamber dimension is mildly enlarged. Right Atria Right atrial chamber dimension is normal. Aortic Valve The aortic valve is probable trileaflet. There is severe aortic valve sclerosis. There is moderate aortic valve stenosis with a peak velocity of 440 cm/s, mean gradient of 52 mmHg, and aortic valve area of 1.3 cm2. There is mild to moderate aortic valve regurgitation. Pulmonic Valve There is trace pulmonic regurgitation. Mitral Valve The mitral valve has mildly calcified leaflets and a mildly calcified annulus. There is no mitral valve stenosis. There is mild mitral valve regurgitation. Tricuspid Valve There is mild tricuspid valve regurgitation. Mild pulmonary hypertension, estimated pulmonary arterial systolic pressure is 44 mmHg. Pericardium/Pleural There is no pericardial effusion. Inferior Vena Cava Normal inferior vena cava with >50% collapse upon inspiration consistent with normal right atrial pressure, 5 mmHg. Aorta The aortic root size at the sinus of Valsalva is normal. Left Ventricular Outflow Tract Name Value Normal LVOT 2D LVOT Diameter 2.0 cm LVOT Doppler LVOT Peak Velocity 153 cm/s LVOT Peak Gradient 9 mmHg LVOT Mean Gradient 7 mmHg LVOT VTI 44 cm LVOT VTI/AV VTI Ratio 0.4 LVOT Stroke Volume 139 ml LVOT CO 23.6 l/min LVOT CI 12.2 l/min/m2 Pulmonic Valve Name Value Normal PV Doppler PV Peak Velocity 86 cm/s PV Peak Gradient 3 mmHg Mitral Valve Name Value Normal MV Diastolic Function MV E Peak Velocity 55 cm/s MV A Peak Velocity 112 cm/s MV E/A 0.5 MV Decel Time (PW) 494 ms MV Annular TDI MV E/e' (Septal) 12.8 MV E/e' (Lateral) 9.6 MV E/e' (Average) 11.2 Tricuspid Valve Name Value Normal TV Regurgitation Doppler TR Peak Velocity 311 cm/s TR Peak Gradient 39 mmHg Estimated PAP/RSVP RA Pressure 5 mmHg <=5 PA Systolic Pressure 44 mmHg <36 RV Systolic Pressure 44 mmHg <36 TV Annular TDI TV Lateral Hellen s' Velocity 13.4 cm/s >=9.5 Aorta Name Value Normal Ascending Aorta Ao Root Diameter (MM) 3.0 cm Ao Root Diam Index (MM) 1.6 cm/m2 Aortic Valve Name Value Normal AV Doppler AV Peak Velocity 440 cm/s AV Peak Gradient 77 mmHg AV Mean Gradient 52 mmHg AV VTI 108 cm AV Area (Cont Eq VTI) 1.3 cm2 >=3.0 AV Area (Cont Eq Bhaskar) 1.1 cm2 AV DI (Bhaskar) 0.35 AV Regurgitation 2D LVOT Area 3.2 cm2 Ventricles Name Value Normal LV Dimensions 2D/MM IVS Diastolic Thickness (2D) 1.5 cm 0.6-1.0 LVID Diastole (2D) 3.7 cm 3.8-5.2 LVIW Diastolic Thickness (2D) 1.5 cm 0.6-0.9 LVID Systole (2D) 2.6 cm 2.2-3.5 LVOT Diameter 2.0 cm LV Mass (2D Cubed) 216.11 g 67.00-162.00 LV Mass Index (2D Cubed) 112 g/m2 43-95 Relative Wall Thickness (2D) 0.81 <=0.42 LV Fractional Shortening/Ejection Fraction 2D/MM LV Fractional Shortening (2D) 30 % 27-45 LV EF (2D Teichholz) 59 % LV Diastolic Volume (4C MOD) 95 ml LV EF (4C MOD) 76 % LV Diastolic Volume (2C MOD) 77 ml LV EF (2C MOD) 81 % LV Diastolic Volume (BP MOD) 85 ml 46-106 LV Diastolic Volume Index (BP MOD) 44 ml/m2 29-61 LV Systolic Volume (BP MOD) 17 ml 14-42 LV Systolic Volume Index (BP MOD) 9 ml/m2 8-24 LV EF (BP MOD) 80 % 54-74 LV Diastolic Length (4C) 8.5 cm LV Systolic Length (4C) 6.7 cm LV Stroke Volume (4C MOD) 72 ml RV Dimensions 2D/MM RVID Diastole (2D) 3.9 cm 2.1-3.5 Atria Name Value Normal LA Dimensions LA Dimension (MM) 3.8 cm 2.7-3.8 LA Volume (4C A-L) 52 ml LA Volume (BP A-L) 50 ml RA Dimensions RA Systolic Major [place] Length (4C) 4.7 cm 2.2-2.8 RA Area (4C) 15.5 cm2 <=18.0 Report Signatures
== END 2024-11-23 07:23 | disposition home or self-care (01) ==
PROVIDERS: PCP Internal Medicine; Visit Provider Internal Medicine Cardiovascular Disease
DX: R93.1 Abnormal findings on diagnostic imaging of heart and coronary circulation (principal); I35.0 Nonrheumatic aortic (valve) stenosis
CPT/HCPCS: 93306

== ENCOUNTER 2025-02-25 18:37 | Emergency (ER) | payer MEDICARE, OTHER, SELFPAY ==
--- OUTSIDE RECORDS SUMMARY | 2021-11-18 04:45 | XMS_ITS | Continuity of Care Document ---
Author Organization Formerly [facility] Address [address] [place] [address] [place] [address] Phone Care Team Providers Care Stick Welder Name Role Phone Jef Choi MD Unavailable Unavailable Allergies, Adverse Reactions, Alerts Substance Reaction Status Criticality No Known Allergies Active No Inform ation Medications Medication Instructions Dosage Effective Dates (start - stop) Status Comments latanoprost 0.005 % eye drops instill 1 drop by ophthalmic route every day in both eyes in the evening 1 drop - Active montelukast 10 mg tablet take 1 tablet b y oral route every day in the evening 10 MG - Active hydrochlorothiazide 12.5 mg tablet take 1 tablet by oral route every day 12.5 MG - Active losartan 100 mg tablet take 1 tablet by oral route every day 100 MG - Active Procedures Procedure Date Fundus Photography W/ Report Office/outpatient Visit, Est Fundus Photography W/ Report Eye Exam & Treatment Office/outpatient Visit, [facility] Advance Directives Directive Yes / No Effective Date File Name No Information Encounters Encounter Description Practice Location Reason(s) For Visit Diagnoses Date Provider Providers Copied on Encounter Office/outpa tient Visit, [facility], [address], [place], [place], [id number], [place] tel:[phone] SEC Avery MORAN Professional Dilated exam (chief complaint) Open fracture of left orbit with routine healing, subsequent encounterPrima ry open-angle glaucoma, bilateral, moderate stage 2 Jimbo Fuchs. [address], [address], [place], [place], [id number], . tel:[phone] Referring Provider: Gilberto Renetta OD, [address] [place] [address], [address]. tel:[phone] [facility], [address], [place], [place], [id number], tel:[phone] SEC Avery MORAN Professional Complete Exam (chief complaint) Primary open-angle glaucoma, bilateral, mild stageOpen fracture of left orbit with routine healing, subsequent encounterAge-r elated nuclear cataract, bilateralMacul ar drusen, left 2 Jimbo Fuchs. [address], [facility] [place], [id number], . tel:[phone] Referring Provider: Gilberto Jackson OD, [address] [place] [address], [address]. tel:[phone] Office/outpa tient Visit, [facility], [address], [place], [place], [id number], [place] tel:[phone] SEC Avery DEAN Professional WIE (chief complaint) Primary open-angle glaucoma, bilateral, mild stageOpen fracture of left orbit, initial encounterOpen fracture of medial wall of left orbit, initial encounter 2 Jimbo Fuchs. [address], [facility] [address], [place], [place], [id number], . tel:[phone] Referring Provider: Gilberto Jackson OD, [address] [place] [address], [address]. tel:[phone] Family History Family Member Type Diagnosis Age At Onset No Information Payers Payer name Insurance type Covered libertarian ID Authorniaa tiangy(s) [place] [id number] [facility] [id number] Social History Type Description Quantity Date Captured Comments Alcohol Use Details No Caffeine Use Details No Tobacco Use Status Current non-smoker Smoking Status Never smoker Non-Smoking Tobacco Use Details : No Details Available : No Details Available Sex Female Chief Complaint And Reason For Visit From encounter dated '11/18/2021 09:45'. Dilated exam (chief complaint). Description: The 81 year old patient presents for evaluation of Dilated exam in the right eye and left eye. Hx of CAT OU, POAG OU (followed by Dr. Jackson), Mac Drusen OS, and Orbital Fracture OS. Pt using Latanoprost OU qhs.Pt states the brow over OS is ribbon lapper tender and a little swollen. Pt denies any visual complaints x 2 mos. Reason For Referral Reason For Referral No Information Plan Of Treatment Date Type Action Status Patient Education Open-Angle Glaucoma: Ca re Instructions completed Patient Education Open-Angle Glaucoma: Ca re Instructions completed History Of Present Illness Encounter Date Complaint History Of Prese nt Illness Dilated exam The 81 year old patient presents for evaluation of Dilated exam in the right eye and left eye. Hx of CAT OU, POAG OU (followed by Dr. Jackson), Mac Drusen OS, and Orbital Fracture OS. Pt using Latanoprost OU qhs.Pt states the brow over OS is ribbon lapper tender and a little swollen. Pt denies any visual complaints x 2 mos. Complete Exam The 81 year old patient presents for evaluation of Complete Exam in the right eye and left eye. Hx of CAT OU, POAG OU (followed by Dr. Jackson), and Orbital Fracture OS. Pt reports OS is a lot better, it is still a little tender, and there is a big knot on eyebrow that she wonders if it will got away. Pt reports she is using Latanoprost QHS OU and last used after midnight last night. Pt reports VA is stable, OU, DV and NV, since last appt. WIE The 81 year old female presents for evaluation of WIE in the left eye. Patient fell in her garage on Wednesday and her left side of her face hit the concrete. Patient states OS is swollen. Patient went to the ER and they did a CT scan. Patient has glaucoma and uses Latanoprost qhs ou. Patient states she can open her left eye today. Patient brought the CT disk into the office today. When patient fell she scratched her left lens so she is wearing an older pair of glasses. Functional Status Date Functional Assessmen t No Information Instructions Date Instruction Additional Infor tani Impression/Plan Impression/Plan Impression/Plan Assessments Type Assessment Date assessment Open fracture of lef t orbit with routine healing, subsequent encounter assessment Primary open-angle glaucoma, anel ateral, moderate stage Patient Care Teams Name Effective Dates (start - stop) Status Members No Information
[2025-02-25] VITALS (14 sets, daily range): BP systolic 109–187; BP diastolic 48–81; PULSE 70–87; RESP 18–28; TEMP 37.3; O2SAT 87–99
--- NOTE | ~2025-02-25 | XR_ITS ---
EXAMINATION: XR chest 1V portable, 02/25/2025 18:49 CDT HISTORY: tachypnea, hypoxia COMPARISON: No comparisons available. Technique: Single view. Findings: The lungs are clear, no effusion. No pneumothorax. Heart is normal size. Mediastinal and hilar contours are within normal limits. Bony thorax no acute abnormality. Impression: No acute cardiopulmonary abnormality. Reviewed, dictated and finalized at location A. Impression: No acute cardiopulmonary abnormality.
--- NOTE | 2025-02-25 18:48 | ECG_ITS ---
Test Date: 2025-02-25 19:00:28 Measurements Intervals [place] Rate: 80 P: 79 UT: 221 QRS: -48 QRSD: 140 T: 62 QT: 412 QTc: 476 Interpretive Statements SINUS RHYTHM WITH SINUS ARRHYTHMIA WITH FIRST DEGREE AV BLOCK RIGHT BUNDLE BRANCH BLOCK [120+ ms QRS DURATION, UPRIGHT V1, 40+ ms S IN I/aVL/V4/V5/V6] LEFT ANTERIOR FASCICULAR BLOCK [QRS AXIS <= -45, QR IN I, RS IN II] ANTERIOR MYOCARDIAL INFARCTION , OF INDETERMINATE AGE [40+ ms Q WAVE AND/OR ST/T ABNORMALITY IN V3/V4] No previous ECG available for comparison Electronically Signed On 02-25-2025 20:39:18 CDT by Corey Gao M.D.
--- NOTE | 2025-02-25 18:54 | ED.GENADULT ---
HPI - General Adult General Chief complaint: Weakness Stated complaint: dizzy Time Seen by Provider: 02/25/25 18:48 History of Present Illness HPI narrative: Sylvie is a 84F with a PMH of aortic stenosis, HTN, HLD, and allergies that was brought to the ED for worsening weakness over the last week. She has also had dysuria, increasing dyspnea, lightheadedness, and worsening lower extremity edema. No CP or syncope. Related Data Home Medications ?Medication ?Instructions ?Recorded ?Confirmed ?Last Taken ?Type hydrochlorothiazide 25 mg tablet 25 mg PO DAILY 08/03/21 12/14/24 Unknown History latanoprost 0.005 % eye drops 1 drp EACH EYE DAILY 08/03/21 12/14/24 Unknown History montelukast 10 mg tablet 10 mg PO DAILY 08/03/21 12/14/24 Unknown History Allergies Allergy/AdvReac Type Severity Reaction Status Date / Time No Known Allergies Allergy Verified 02/25/25 18:55 Review of Systems Review of Systems: All systems reviewed & are unremarkable except as noted in HPI and below PMFSH Past Medical History Medical History Glaucoma Hypertension Surgical History Surgical History H/O hysterectomy for benign disease Hx of cholecystectomy Social History Social History Smoking status: Never smoker Exam Const: General: cooperative, healthy appearing, comfortable, no acute distress, well developed, alert, awake and Physically active Orientation/consciousness: oriented to person, oriented to place and oriented to time HENMT: Head: normal to inspection, normocephalic and atraumatic Ears: hearing grossly normal bilaterally and external ears normal Face/Nose/Sinus: Normal external nose present Eyes: General: appearance normal, both eyes and all related structures Periorbital: periorbital findings normal Sclera: sclerae normal Pupils: Equal, round and reactive pupils present Neck: Neck: normal visual inspection Chest: Chest palpation & inspection: normal inspection of the chest Resp: Other: Tachypnea, bibasilar crackles, mildly increased work of breathing Cardio: Jugular venous distension: no JVD Rate: regular rate Rhythm: regular rhythm Other: Loud systolic decresendo murmur Skin: General skin exam: normal color and no rashes or lesions noted Neuro: General: oriented to person, oriented to place and oriented to time Cranial nerves: Yes Equal, round and reactive pupils present Extrem: General: normal to inspection Course Course Emergency Course: Ordered labs, EKG, CXR EKG showed NSR with a rate of 80, RBBB, left anterior fasicular block but no ST elevation EXAMINATION: XR chest 1V portable, 02/25/2025 18:49 CDT HISTORY: tachypnea, hypoxia COMPARISON: No comparisons available. Technique: Single view. Findings: The lungs are clear, no effusion. No pneumothorax. Heart is normal size. Mediastinal and hilar contours are within normal limits. Bony thorax no acute abnormality. Impression: No acute cardiopulmonary abnormality. UA and leukocytosis consistent with UTI so ceftriaxone was given. Potassium was supplemented. Suspect CHF with mildly elevated troponin and elevated BNP. Contacted [facility] [place] for admission for UTI and CHF. I spoke with Dr. Carolina that wanted to run the case by cardiology given the at 2151. I again spoke with Dr. Carolina that recommended heparin/lovenox as she may have a possible PE and she was accepted to a telemetry unit. Sylvie was transferred to [facility] [place] for further care and cardiology consult. Vital Signs Vital signs: Vital Signs Temperature 99.1 F 02/25/25 18:37 Pulse Rate 80 02/25/25 18:37 Respiratory Rate 28 H 02/25/25 18:37 Blood Pressure 134/64 02/25/25 18:37 Pulse Oximetry 90 02/25/25 18:37 Oxygen Delivery Room Air 02/25/25 18:37 Temperature 99.1 F 02/25/25 18:37 Pulse Rate 70 02/25/25 23:31 Respiratory Rate 20 02/25/25 23:31 Blood Pressure 120/52 L 02/25/25 23:31 Pulse Oximetry 91 02/25/25 23:31 Oxygen Delivery Nasal Cannula 02/25/25 23:31 Oxygen Flow Rate 2 02/25/25 23:31 Medical Decision Making Vital Signs Vital Signs: Vital Signs Temperature 99.1 F 02/25/25 18:37 Pulse Rate 80 02/25/25 18:37 Respiratory Rate 28 H 02/25/25 18:37 Blood Pressure 134/64 02/25/25 18:37 Pulse Oximetry 90 02/25/25 18:37 Oxygen Delivery Room Air 02/25/25 18:37 Temperature 99.1 F 02/25/25 18:37 Pulse Rate 70 02/25/25 23:31 Respiratory Rate 20 02/25/25 23:31 Blood Pressure 120/52 L 02/25/25 23:31 Pulse Oximetry 91 02/25/25 23:31 Oxygen Delivery Nasal Cannula 02/25/25 23:31 Oxygen Flow Rate 2 02/25/25 23:31 Lab Data 02/25/25 19:12 02/25/25 19:12 Labs: Lab Results 02/25/25 02/25/25 Range/Units 19:12 23:20 WBC 16.3 H (4.8-10.8) K/mm3 RBC 4.19 L (4.20-5.40) M/mm3 Hgb 12.8 (11.7-13.8) g/dL Hct 37.7 (35.0-42.0) % MCV 90.0 (78.0-102.0) fL MCH 30.5 (27.0-31.0) pg MCHC 34.0 (32-36) g/dL RDW 12.5 (11.6-14.4) % Plt Count 281 (150-420) K/mm3 MPV 10.6 (9.2-11.8) fl Immature Gran % (Auto) 0.8 H (0.0-0.0) % Neut % (Auto) 80.6 H (50.0-70.0) % Lymph % (Auto) 10.3 L (18.0-42.0) % [place] % (Auto) 7.2 (2.0-11.0) % Eos % (Auto) 1.0 (1.0-6.0) % Baso % (Auto) 0.1 (0.0-1.0) % Lymph # (Auto) 1.68 (1.10-4.50) K/mm3 [place] # (Auto) 1.17 H (0.10-0.90) K/mm3 Eos # (Auto) 0.17 (0.02-0.50) K/mm3 Baso # (Auto) 0.02 (0.00-0.10) K/mm3 Abs Immat Gran (auto) 0.13 H (0.00-0.00) K/mm3 Absolute Neuts (auto) 13.08 H (1.70-7.20) K/mm3 Absolute Nucleated RBC 0.00 (0.00-0.00) K/mm3 Nucleated RBC % 0.0 (0-0.0) % PT 10.4 (9.50-12.1) Seconds INR 0.9 Sodium 134 L (137-145) mmol/L Potassium 2.9 L (3.4-5.0) mmol/L Chloride 97 L (98-107) mmol/L Carbon Dioxide 27 (22-30) mmol/L Anion Gap 10 (4-12) mmol/L BUN 23 H (7-17) mg/dL Creatinine 1.14 H (0.7-1.0) mg/dL Estim Creat Clear Calc 30 ml/min Estimated GFR 45 L (59 - ) Glucose 195 H (65-110) mg/dL Calculated Osmolality 286 (285-295) mOsm/kg Calcium 8.9 (8.4-10.2) mg/dL Magnesium 2.3 (1.6-2.3) mg/dL Total Bilirubin 1.1 (0.2-1.3) mg/dL AST 32 (14-36) U/L ALT 25 (6-35) U/L Alkaline Phosphatase 198 H (38-126) U/L Troponin I 0.040 H* Pending (0.000-0.034) ng/mL NT-Pro-B Natriuret Pep 1580 H (19.9-100) pg/mL Total Protein 6.8 (6.3-8.2) g/dL Albumin 3.8 (3.5-5.1) g/dL TSH 1.130 (0.465-4.680) uIU/mL Urine Color Light yellow (Yellow) Urine Appearance Clear (Clear) Urine pH 6.0 (5.0-8.0) Ur Specific [place] 1.010 (1.010-1.020) Urine Protein 1+ H (Negative) Urine Glucose (UA) Negative (Negative) Urine Ketones Negative (Negative) Ur Blood (Man) 2+ H (Negative) Urine Nitrate Positive H (Negative) Urine Bilirubin Negative (Negative) Urine Urobilinogen 0.2 (0.2-1.0) mg/dL Leukocyte Esterase Rfl 1+ H (Negative) ARVIND/UL Urine RBC 6-10 H (0-2) /hpf Urine WBC >100 (0-3) /hpf Urine WBC Clumps Present H (None) /hpf Amorphous Sediment Heavy H (None) Urine Bacteria 4+ H (None) /hpf Influenza A (RT-PCR) Negative (Negative) Influenza B (RT-PCR) Negative (Negative) RSV (RT-PCR) Negative (Negative) SARS-CoV-2 RNA (RT-PCR) Negative (Negative) Discharge Plan Discharge Clinical Impression: Aortic stenosis, CHF (congestive heart failure), Acute UTI Patient Disposition: Acute Care Hospital Condition: Serious Patient Language: Vietnamese Prescriptions: No Action latanoprost 0.005 % drops 1 drp EACH EYE DAILY montelukast 10 mg tablet 10 mg PO DAILY hydrochlorothiazide 25 mg tablet 25 mg PO DAILY losartan 50 mg tablet 50 mg PO DAILY Qty: 30 5RF atorvastatin [Lipitor] 40 mg tablet 40 mg PO DAILY Qty: 30 0RF Follow-up/Referrals: Jovanny Rea MD [Primary Care Provider, Internal Medicine]
--- NOTE | 2025-02-25 19:10 | PC.NURSE ---
ASSUMED CARE. REPORT RECEIVED FROM MING DELACRUZ. PATIENT IS CURRENTLY RESTING ON STRETCHER WITH FAMILY MEMBER AT HER SIDE. CURRENTLY NO NEEDS VOICED. CALL LIGHT IN REACH
--- OUTSIDE RECORDS SUMMARY | 2025-02-25 19:12 | XMS_ITS | Clinical Summary ---
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
[2025-02-25 19:22] LABS: Hematocrit 37.7 % (35.0-42.0); Hemoglobin 12.8 g/dL (11.7-13.8); Immature Granulocyte Percent A 0.8 % (0.0-0.0); Lymphocytes Absolute Auto 1.68 K/mm3 (1.10-4.50); Mean Corpuscular HGB Conc 34.0 g/dL (32-36); Mean Corpuscular Hemoglobin 30.5 pg (27.0-31.0); Mean Corpuscular Volume 90.0 fL (78.0-102.0); Nucleated Red Blood Cells Absolute Auto 0.00 K/mm3 (0.00-0.00); Nucleated Red Blood Cells Perc 0.0 % (0-0.0); Platelet Count Result 281 K/mm3 (150-420); Red Blood Count 4.19 M/mm3 (4.20-5.40); White Blood Count 16.3 K/mm3 (4.8-10.8)
--- NOTE | 2025-02-25 19:25 | PC.NURSE ---
PATIENT SPO2 IN THE HIGH 80'S. DR SCHNEIDER WAS NOTIFIED. PLACED PATIENT ON 2 LITERS NC. PATIENT WOB NON LABORED.
[2025-02-25 19:27] LABS: Alanine Aminotransferase 25 U/L (6-35); Albumin Level 3.8 g/dL (3.5-5.1); Alkaline Phosphatase 198 U/L (38-126); Anion Gap 10 mmol/L (4-12); Aspartate Amino Transferase 32 U/L (14-36); Bilirubin,Total 1.1 mg/dL (0.2-1.3); Blood Urea Nitrogen 23 mg/dL (7-17); Calcium 8.9 mg/dL (8.4-10.2); Carbon Dioxide 27 mmol/L (22-30); Chloride 97 mmol/L (98-107); Estimated CRCL calculation 30 ml/min; Estimated Glomerular Filt Rate 45; Glucose 195 mg/dL (65-110); Magnesium 2.3 mg/dL (1.6-2.3); Osmolality Calculated 286 mOsm/kg (285-295); Potassium 2.9 mmol/L (3.4-5.0); Sodium 134 mmol/L (137-145); Total Protein 6.8 g/dL (6.3-8.2)
[2025-02-25 19:39] LABS: NT Pro B Type Natriuretic Pept 1580 pg/mL (19.9-100)
[2025-02-25 19:53] LABS: Troponin I 0.040 ng/mL (0.000-0.034)
[2025-02-25 20:01] LABS: Influenza A QL RT-PCR Negative (Negative); Influenza B QL RT-PCR Negative (Negative); RSV RNA, RT-PCR Negative (Negative); SARS-CoV-2 RNA PCR Negative (Negative)
[2025-02-25 20:03] LABS: Thyroid Stimulating Hormone 1.130 uIU/mL (0.465-4.680)
--- NOTE | 2025-02-25 20:18 | PC.NURSE ---
RESTING QUIETLY ON STRETCHER. FAMILY CURRENTLY OUT IN THE WAITING ROOM. NO NEEDS VOICED. CALL LIGHT IN REACH
--- NOTE | 2025-02-25 20:37 | PC.NURSE ---
DR SCHNEIDER AT THE BEDSIDE
[2025-02-25] MEDS: FUROSEMIDE INJ 40 MG/4 ML VIAL IV PUSH (20:49)
[2025-02-25] MEDS: POTASSIUM CHLORIDE 20 MEQ ER TABLET 40 MEQ PO (20:49)
[2025-02-25] MEDS: cefTRIAXone 1 GM in SODIUM CHLORIDE 0.9% IV 50 ML 100 ML IVPB (20:54)
[2025-02-25 21:01] LABS: Add Urine Microscopic? YES; Appearance Urine Clear (Clear); Glucose Urine UA Negative (Negative); Leukocyte Esterase Ur 1+ LEU/UL (Negative); Nitrate Urine Positive (Negative); Specific Grav Ur 1.010 (1.010-1.020)
--- NOTE | 2025-02-25 21:07 | PC.NURSE ---
RESTING ON STRETCHER. FAMILY AT HIS SIDE
--- NOTE | 2025-02-25 22:40 | PC.NURSE ---
UPDATED PATIENT AND FAMILY OF ROOM ASSIGNMENT FOR PATIENT.
[2025-02-25 22:52] LABS: INR 0.9; Prothrombin Time 10.4 Seconds (9.50-12.1)
[2025-02-25] MEDS: ENOXAPARIN 100 MG/ML SYRINGE 80 MG SUB-Q (22:59)
--- NOTE | 2025-02-25 23:11 | PC.NURSE ---
LAB AT THE BEDSIDE DRAWING SECOND TROP
[2025-02-26 00:24] LABS: Troponin I 0.038 ng/mL (0.000-0.034)
--- NOTE | 2025-02-28 17:06 | PC.NURSE ---
preliminary curine culture reviewed. gram negative bacilli isolated
--- NOTE | 2025-03-02 14:40 | PC.NURSE ---
PT DISCHARGED FROM HOSPITAL RESULTS FAXED TO [facility] SPOKE WITH ANN AND RESULTS FAXED TO HER FOR FOLLOW UP
== END 2025-02-25 23:31 | disposition short-term general hospital (02) ==
PROVIDERS: Emergency Provider Family Medicine; PCP Internal Medicine
DX: I35.0 Nonrheumatic aortic (valve) stenosis (principal); I11.0 Hypertensive heart disease with heart failure; I50.9 Heart failure, unspecified; N39.0 Urinary tract infection, site not specified; E78.5 Hyperlipidemia, unspecified; Z20.822 Contact with and (suspected) exposure to COVID-19
CPT/HCPCS: 36415; 71045; 80053; 81001; 83735; 83880; 84443; 84484; 85025; 85610; 87077; 87086; 87186; 87637; 93005; 96365; 96372; 96374; 99285; A9270; J0696; J1650; J1938

== ENCOUNTER 2025-02-26 02:39 | Inpatient (IN) | payer MEDICARE, OTHER, SELFPAY ==
[2025-02-26] VITALS (13 sets, daily range): BP systolic 102–125; BP diastolic 47–67; PULSE 64–77; RESP 16–18; TEMP 36.4–37.1; O2SAT 91–99; BMI 34.4
--- NOTE | 2025-02-26 | ECHO_ITS ---
Patient Info Name: Sylvie Barrientos Age: 84 years : 1940 Gender: Female Ht: 60 in Wt: 176 lbs BSA: 1.88 m2 HR: 67 bpm BP: 102 / 50 mmHg Technical Quality: Good Exam Date: 02/26/2025 9:55 AM Patient Status: I Admit Date: 02/26/2025 Exam Type: CA echo doppler color flow Complete two-dimensional, color flow and Doppler transthoracic echocardiogram is performed. Staff Referring Physician: Anais Wilson Pigment Pumper: Julien Morris III Attending Provider: Gina Carolina Summary 1. Complete two-dimensional, color flow and Doppler transthoracic echocardiogram is performed. 2. Left ventricular chamber dimension is normal. 3. Left ventricular systolic function is hyperdynamic, estimated at >70. 4. There is moderate concentric increased left ventricular wall thickness. 5. The left ventricular diastolic function is grade I diastolic dysfunction. 6. E/e' 13 is mildly elevated. 7. Left atrial chamber dimension is moderately enlarged. 8. There is severe aortic valve sclerosis. 9. There is moderate to severe aortic valve stenosis with a peak velocity of 445 cm/s, mean gradient of 42 mmHg, and aortic valve area of 1.5 cm2. 10. There is mild aortic valve regurgitation. 11. The mitral valve has a moderately calcified annulus. 12. There is mild tricuspid valve regurgitation. 13. No pulmonary hypertension, estimated pulmonary arterial systolic pressure is 37 mmHg. Left Ventricle E/e' 13 is mildly elevated. Left ventricular chamber dimension is normal. Left ventricular systolic function is hyperdynamic, estimated at >70. There is moderate concentric increased left ventricular wall thickness. The left ventricular diastolic function is grade I diastolic dysfunction. Right Ventricle Right ventricular chamber dimension is normal. Right ventricular systolic function is normal and with normal TAPSE 2.8 cm. Left Atria Left atrial chamber dimension is moderately enlarged. Right Atria Right atrial chamber dimension is normal. Aortic Valve The aortic valve is trileaflet. There is severe aortic valve sclerosis. There is moderate to severe aortic valve stenosis with a peak velocity of 445 cm/s, mean gradient of 42 mmHg, and aortic valve area of 1.5 cm2. There is mild aortic valve regurgitation. Pulmonic Valve There is no pulmonic regurgitation. Mitral Valve The mitral valve has a moderately calcified annulus. There is no mitral valve stenosis. There is no mitral valve regurgitation. Tricuspid Valve There is mild tricuspid valve regurgitation. No pulmonary hypertension, estimated pulmonary arterial systolic pressure is 37 mmHg. Pericardium/Pleural There is no pericardial effusion. Inferior Vena Cava Normal inferior vena cava with >50% collapse upon inspiration consistent with normal right atrial pressure, 5 mmHg. Aorta The aortic root size at the sinus of Valsalva is normal. Left Ventricular Outflow Tract Name Value Normal LVOT 2D LVOT Diameter 1.9 cm LVOT Doppler LVOT Peak Velocity 194 cm/s LVOT Peak Gradient 15 mmHg LVOT Mean Gradient 10 mmHg LVOT VTI 44 cm LVOT VTI/AV VTI Ratio 0.5 LVOT Stroke Volume 126 ml LVOT CO 24.8 l/min LVOT CI 13.2 l/min/m2 Pulmonic Valve Name Value Normal PV Doppler PV Peak Velocity 112 cm/s PV Peak Gradient 5 mmHg PV Mean Gradient 2 mmHg Mitral Valve Name Value Normal MV Doppler MV Peak Gradient 6 mmHg MV Mean Gradient 2 mmHg MV Area (Cont Eq VTI) 3.5 cm2 MV Diastolic Function MV E Peak Velocity 56 cm/s MV A Peak Velocity 129 cm/s MV E/A 0.4 MV Decel Time (PW) 433 ms MV Annular TDI MV E/e' (Septal) 14.7 MV E/e' (Lateral) 12.2 MV E/e' (Average) 13.5 Tricuspid Valve Name Value Normal TV Regurgitation Doppler TR Peak Velocity 285 cm/s TR Peak Gradient 32 mmHg Estimated PAP/RSVP RA Pressure 5 mmHg <=5 PA Systolic Pressure 37 mmHg <36 RV Systolic Pressure 37 mmHg <36 TV Annular TDI TV Lateral Hellen s' Velocity 14.0 cm/s >=9.5 Aortic Valve Name Value Normal AV Doppler AV Peak Velocity 445 cm/s AV Peak Gradient 79 mmHg AV Mean Gradient 42 mmHg AV VTI 84 cm AV Area (Cont Eq VTI) 1.5 cm2 >=3.0 AV Area (Cont Eq Bhaskar) 1.2 cm2 AV DI (Bhaskar) 0.44 AV Regurgitation 2D LVOT Area 2.9 cm2 Ventricles Name Value Normal LV Dimensions 2D/MM IVS Diastolic Thickness (2D) 1.5 cm 0.6-1.0 LVID Diastole (2D) 3.8 cm 3.8-5.2 LVIW Diastolic Thickness (2D) 1.3 cm 0.6-0.9 LVID Systole (2D) 2.4 cm 2.2-3.5 LVOT Diameter 1.9 cm LV Mass (2D Cubed) 190.86 g 67.00-162.00 LV Mass Index (2D Cubed) 102 g/m2 43-95 Relative Wall Thickness (2D) 0.68 <=0.42 LV Fractional Shortening/Ejection Fraction 2D/MM LV Fractional Shortening (2D) 38 % 27-45 LV EF (2D Teichholz) 69 % LV Diastolic Volume (4C MOD) 87 ml LV EF (4C MOD) 64 % LV Diastolic Length (4C) 7.6 cm LV Systolic Length (4C) 6.9 cm LV Stroke Volume (4C MOD) 55 ml Atria Name Value Normal LA Dimensions LA Volume (4C A-L) 51 ml LA Volume (BP A-L) 64 ml RA Dimensions RA Systolic Major [place] Length (4C) 5.1 cm 2.2-2.8 RA Area (4C) 17.9 cm2 <=18.0 Report Signatures
--- NOTE | ~2025-02-26 | US_ITS ---
EXAMINATION:US venous doppler LE BI INDICATION:History of DVT TECHNIQUE: Multiple grayscale, color flow and Doppler images of the right and left lower extremity deep venous systems were obtained and reviewed. COMPARISON:No prior studies for comparison. FINDINGS: The common femoral, superficial femoral and popliteal veins demonstrate normal respiratory variation, augmentation and compressibility. Color flow is also seen within the posterior tibial, peroneal, greater saphenous and profunda veins. IMPRESSION: 1: No lower extremity deep venous thrombosis. Reviewed, dictated and finalized at location O.
--- NOTE | ~2025-02-26 | NM_ITS ---
EXAMINATION: NM lung vent and perfusion DATE: 02/26/2025 14:34 INDICATION: Lower limb swelling. Elevated d-dimer. TECHNIQUE: 10.2 mCi xenon-133 by inhalation and 5.1 mCi Tc-99m MAA by intravenous route. Scintigraphic images of the chest were obtained. COMPARISON: Chest radiograph dated 02/25/2025 FINDINGS: There is homogeneous radiotracer activity throughout the lungs on the single breath ventilation sequence. There are multiple perfusion defects in both lungs. The largest is a moderate-sized perfusion defect at the superior segment of the right lower lobe. There are additional small perfusion defects at the superior and anterior segments of the right upper lobe. Small perfusion defect also seen at the basilar right middle lobe. In the left lung there are multiple small peripheral wedge-shaped perfusion defects including at the apex and apical posterior segments, moderate sized perfusion defect at the superior segment of the left lower lobe and 2 small perfusion defects along the posterior basilar an d lateral basilar segments of the left lower lobe. IMPRESSION: 1. High probability for pulmonary embolism. Reviewed, dictated and finalized at location A.
--- OUTSIDE RECORDS SUMMARY | 2025-02-26 00:11 | XMS_ITS | Clinical Summary ---
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
--- OUTSIDE RECORDS SUMMARY | 2025-02-26 00:11 | XMS_ITS | Clinical Summary ---
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 Gender Identity Not on file Sexual Orientation Not on file Obstetrics History Last Filed Vital Signs Vital Sign Reading Time Taken Comments Blood Pressure 160/80 07/16/2023 11:37 AM DRILLER OPERATOR Pulse 73 07/16/2023 11:37 AM DRILLER OPERATOR Temperature 36.9 C (98.5 F) 07/16/2023 11:37 AM DRILLER OPERATOR Respiratory Rate 16 07/16/2023 11:37 AM DRILLER OPERATOR Oxygen Saturation 95% 07/16/2023 11:37 AM DRILLER OPERATOR Inhaled Oxygen Concentration - - Weight 79.4 kg (175 lb) 07/16/2023 9:38 AM DRILLER OPERATOR Height 160 cm (5' 3) 07/16/2023 9:38 AM DRILLER OPERATOR Body Mass Index 31 07/16/2023 9:38 AM DRILLER OPERATOR Plan of Treatment Health Maintenance Due Date Last Done Comments Depression Screening 1940 Fall Risk Assessment 1940 Osteoporosis Screening-Bone Density Scan 1940 Hepatitis B Screening 1956 Zoster Vaccine (1 of 2) 1988 Well Visit 65+ 2003 Pneumococcal vaccine 65+ (2 of 2 - PCV) 02/05/2021 02/06/2020, 12/11/2013, 06/21/2007 Covid-19 Vaccine (5 - 5-2 6 season) 2025 04/19/2022, 07/08/2021, 09/20/2020, Additional history exists Influenza Vaccine (#1) 2025 , 03/30/2019, 02/15/2017, Additional history exists DTaP/Tdap/Td Vaccine (2 - Td or Tdap) 03/04/2031 03/04/2021 Insurance MEDICARE [employer] MEDICARE FOR LIFE Advance Directives For more information, please contact: [phone] * Full Code (Latest Code Status on File) Date Activated Date Inactivated Comments 07/16/2023 9:29 AM 07/16/2023 4:28 PM * Full Code Date Activated Date Inactivated Comments 07/16/2023 9:29 AM 07/16/2023 9:29 AM * Full Code Date Activated Date Inactivated Comments 04/12/2018 7:59 AM 04/12/2018 11:35 AM * Full Code Date Activated Date Inactivated Comments 04/12/2018 7:59 AM 04/12/2018 7:59 AM Care Teams Meat Packer Relationship Specialty Start Date End Date Jovanny Rea MD PCP - General Internal Medicine 02/25/18
--- NOTE | 2025-02-26 02:09 | ADMGEN ---
This patient, Sylvie Barrientos, was admitted to [facility] Surg Room 311-01, came for CHF, aortic stenosis evaluation, UTI. Patient/family oriented to hospital policies and general routines including ID bracelet, bed and alarms, visiting hours, pain management, procedures, bathroom and other care routines, personal items, smoking policy, room service/diet, and visiting hours. Information on how to activate the Rapid Response Team has been discussed. Patient/Family are encouraged to report perceived risks to care and to ask questions if they do not understand what they are told or what they should do.
--- NOTE | 2025-02-26 02:30 | PM.IMHP ---
H&P: HPI History of Present Illness Date/Time: 02/26/25 02:30 Chief Complaint: Shortness of breath and painful urination Narrative: An 84-year-old female with PMH non rheumatic aortic stenosis, dyslipidemia, hypertension, COVID infection 10/10/2021, secondhand smoke exposure previously. She presents to [facility] on 02/25/2025 as a transfer from [facility]. She is a patient of Dr. Rea PCP and Dr. Cheung cardiology. She recently saw Dr. Cheung in the office on 12/14/2024 to follow-up on her cardiovascular status. An echo done on 11/23/2024 compared to a year prior showed stable aortic stenosis. There is also grade 1 diastolic dysfunction and moderate LVH. No further recommendations. A week prior to admission the patient began to experience painful urination and increased frequency. Around the same time she feels as if her shortness of breath have gotten worse on exertion. She also has new onset lower extremity swelling. She has a cough but she attributes that to seasonal allergies. She does not lie flat at night for some time because she feels may be it is harder to breathe. A few days prior to admission she had stomach upset and episode of vomiting and hot sweats at night. When she arrived to [facility] her O2 saturation was 88% and she was placed on 2 L nasal cannula. Her blood pressure was elevated at 180 7/81 and improved greatly after Lasix administration. WBC count 16.3, sodium 134, potassium 2.9, BUN 23, serum creatinine 1.14, troponin 0.040. EKG with normal sinus rhythm a right bundle preston block but no ST elevation. The patient denied chest pain. BNP 1580. Urinalysis grossly abnormal with 6-10 RBC, leukocyte esterase positive, greater than 100 WBC, bacteria 4+, quad viral screen negative. A chest x-ray revealed no acute cardiopulmonary abnormality. She was given ceftriaxone. Potassium reported as supplemented. She was given Lasix as well. [id number] and daughter Sammie are present and they report after the Lasix the patient has been breathing much better and the swelling in her legs have improved greatly. She was administered a dose of Lovenox for possible PE. Review of Systems Review of Systems: All systems reviewed & are unremarkable except as noted in HPI and below (Subjective) [facility] Past Medical History Medical History Glaucoma Hypertension Surgical History Surgical History H/O hysterectomy for benign disease Hx of cholecystectomy Social History Social History Smoking status: Never smoker Second hand tobacco smoke exposure: No Alcohol intake: former Substance use: never Lack of Transportation: No Lack of Food: Never True Current Housing: I Have Housing Concerned About Future Housing: No Difficulty Paying Gas/Electric Bills: No Difficulty Paying for Meds: No Currently Unemployed: No Education: Decline to Answer Difficulty w/ Childcare or Family Care: No Spiritual care concerns: No Meds Home Medications and Allergies Home Medications ?Medication ?Instructions ?Recorded ?Confirmed ?Type hydrochlorothiazide 25 mg tablet 25 mg PO HS 08/03/21 02/26/25 History latanoprost 0.005 % eye drops 1 drp EACH EYE DAILY 08/03/21 02/26/25 History montelukast 10 mg tablet 10 mg PO DAILY 08/03/21 02/26/25 History losartan 50 mg tablet 50 mg PO DAILY #30 tabs 12/14/24 02/26/25 Rx atorvastatin 40 mg tablet (Lipitor) 40 mg PO DAILY #30 tabs 12/18/24 Rx Allergies Allergy/AdvReac Type Severity Reaction Status Date / Time No Known Allergies Allergy Verified 02/25/25 18:55 Vital Signs Vital Signs - 24 hr 02/26/25 01:05 Temperature 97.8 F Pulse Rate 64 Respiratory Rate 18 Blood Pressure 102/50 L Pulse Oximetry 99 Exam Const: General: comfortable and no acute distress Other: A&O x3 HENMT: Mouth: Yes moist mucous membranes Eyes: Pupils: Equal, round and reactive pupils present Neck: Neck: supple Resp: Effort & Inspection: normal respiratory effort Other: Scant bibasilar crackles Cardio: Rate: regular rate Rhythm: regular rhythm Heart sounds: Murmur heart sound present (Systolic bilateral sternal borders) GI: Inspection: non-distended GI Palp: Yes Soft to palpation Neuro: Motor exam (neuro): 5/5 motor strength present throughout Extrem: Other: 1+ pitting edema bilateral lower extremities, reported to be improved by family Assessment and Plan Assessment and plan (1) Aortic stenosis: Code(s): I35.0 - Nonrheumatic aortic (valve) stenosis Status: Acute (2) Hypertension: Code(s): I10 - Essential (primary) hypertension Status: Acute (3) Elevated troponin: Code(s): R79.89 - Other specified abnormal findings of blood chemistry Status: Acute (4) Acute hypoxemic respiratory failure: Code(s): J96.01 - Acute respiratory failure with hypoxia Status: Acute (5) UTI (urinary tract infection): Code(s): N39.0 - Urinary tract infection, site not specified Status: Acute (6) Leukocytosis: Code(s): D72.829 - Elevated white blood cell count, unspecified Status: Acute Plan An 84-year-old female with PMH non rheumatic aortic stenosis, dyslipidemia, hypertension, COVID infection 10/10/2021, secondhand smoke exposure previously. She presents to [facility] on 02/25/2025 as a transfer from [facility]. She is a patient of Dr. Rea PCP and Dr. Cheung cardiology. She recently saw Dr. Cheung in the office on 12/14/2024 to follow-up on her cardiovascular status. An echo done on 11/23/2024 compared to a year prior showed stable aortic stenosis. There is also grade 1 diastolic dysfunction and moderate LVH. No further recommendations. A week prior to admission the patient began to experience painful urination and increased frequency. Around the same time she feels as if her shortness of breath have gotten worse on exertion. She also has new onset lower extremity swelling. She has a cough but she attributes that to seasonal allergies. She does not lie flat at night for some time because she feels may be it is harder to breathe. A few days prior to admission she had stomach upset and episode of vomiting and hot sweats at night. When she arrived to [facility] her O2 saturation was 88% and she was placed on 2 L nasal cannula. Her blood pressure was elevated at 180 7/81 and improved greatly after Lasix administration. WBC count 16.3, sodium 134, potassium 2.9, BUN 23, serum creatinine 1.14, troponin 0.040. EKG with normal sinus rhythm a right bundle preston block but no ST elevation. The patient denied chest pain. BNP 1580. Urinalysis grossly abnormal with 6-10 RBC, leukocyte esterase positive, greater than 100 WBC, bacteria 4+, quad viral screen negative. A chest x-ray revealed no acute cardiopulmonary abnormality. She was given ceftriaxone. Potassium reported as supplemented. She was given Lasix as well. [id number] and daughter Sammie are present and they report after the Lasix the patient has been breathing much better and the swelling in her legs have improved greatly. She was administered a dose of Lovenox for possible PE. ----- I spoke with the pt's geology teacher Dr. Cheung in light of her aortic stenosis. He advised admission and treatment for heart failure and repeat echocardiogram. We also discussed the possibility of pulmonary embolism and further workup. Appreciate further recommendations. Repeat troponin downtrending to 0.038. Continue with Lasix 20 mg IV b.i.d, she has had improvement in her breathing and leg swelling already. Wean oxygen as tolerated per protocol. Continue Lovenox 1mg/kg subcutaneous q.12 hours. Monitor for improvement in her serum creatinine and obtain either CT chest PE protocol or VQ scan. Heart healthy diet. Repeat BMP magnesium CBC, procalcitonin. Replace potassium and magnesium as appropriate. Holding [employer] losartan for now given the newly administered Lasix and FILOMENA. Continue ceftriaxone. Follow-up urine culture. Trend leukocytosis. Patient wishes to be DNR. She lives alone at home, supported by her aeuiyeqb-hq-tep and daughter (Sammie). Saline lock IV. Heart healthy diet. Hospitalist [facility] Advance Care Plan I have confirmed that the patient's Advanced Care Plan is present, code status is documented, or surrogate decision maker is listed in patient medical record.: Yes Medication Reconciliation I have utilized all available resources to obtain, update and review the patients current medications (includes all prescriptions, OTC, herbals, cannabis, and nutritional supplements).: Yes
[2025-02-26 05:43] LABS: Hematocrit 37.0 % (37.0-47.0); Hemoglobin 12.4 g/dL (12.0-15.0); Immature Granulocyte Percent A 0.7 % (0-0.5); Lymphocytes Absolute Auto 1.82 K/mm3 (0.9-3.2); Mean Corpuscular HGB Conc 33.5 g/dl (32-36); Mean Corpuscular Hemoglobin 30.4 pg (26-34); Mean Corpuscular Volume 90.7 fl (80-100); Nucleated Red Blood Cells Absolute Auto 0.000 K/mm3 (0.0-0.012); Nucleated Red Blood Cells Perc 0.0 % (0.0-0.2); Platelet Count Result 256 k/mm3 (150-375); Red Blood Count 4.08 M/mm3 (4.2-5.4); White Blood Count 13.7 K/mm3 (4.5-10.0)
[2025-02-26 06:01] LABS: Anion Gap 8 mmol/L (4-12); Blood Urea Nitrogen 22 mg/dL (7-17); Calcium 8.9 mg/dL (8.4-10.2); Carbon Dioxide 29 mmol/L (22-30); Chloride 97 mmol/L (98-107); Estimated CRCL calculation 33 ml/min; Estimated Glomerular Filt Rate 52; Glucose 177 mg/dL (65-110); Magnesium 2.1 mg/dL (1.6-2.3); Potassium 2.9 mmol/L (3.4-5.0); Sodium 134 mmol/L (137-145)
[2025-02-26 06:22] LABS: Procalcitonin 3.1 ng/mL
--- NOTE | 2025-02-26 07:21 | PM.IMPN ---
Progress Note: A&P Assessment and Plan (1) Aortic stenosis: Code(s): I35.0 - Nonrheumatic aortic (valve) stenosis Status: Acute Assessment and Plan: cardiology consulted repeat ECHO ordered (2) Hypertension: Code(s): I10 - Essential (primary) hypertension Status: Acute Assessment and Plan: monitor BP (3) Elevated troponin: Code(s): R79.89 - Other specified abnormal findings of blood chemistry Status: Acute Assessment and Plan: appears to be due to demand ischemia denies chest pain (4) Acute hypoxemic respiratory failure: Code(s): J96.01 - Acute respiratory failure with hypoxia Status: Acute Assessment and Plan: on O2 by [place], wean as tolerated s/p IV furosemide VQ scan to rule out PE full dose Lovenox patient reports dyspnea resolved after IV diuresis (5) UTI (urinary tract infection): Code(s): N39.0 - Urinary tract infection, site not specified Status: Acute Assessment and Plan: UA with 6-10 RBC, leukocyte esterase positive, greater than 100 WBC, bacteria 4+ f/u urine cultures IV Rocephin AM labs (6) Leukocytosis: Code(s): D72.829 - Elevated white blood cell count, unspecified Status: Acute Assessment and Plan: suspect due to UTI improving IV Rocephin AM labs (7) Acute on chronic diastolic (congestive) heart failure: Code(s): I50.33 - Acute on chronic diastolic (congestive) heart failure Status: Acute Assessment and Plan: patient presented with dyspnea and BLE edema cardiology consulted ECHO ordered IV furosemide, cardiology recommends to d/c Subjective Date/time seen: 02/26/25 07:21 Interval history: Patient is a 84 year old female with PMH of non rheumatic aortic stenosis, dyslipidemia, hypertension, COVID infection 10/10/2021, secondhand smoke exposure previously. She presents to [facility] on 02/25/2025 as a transfer from [facility].She was given ceftriaxone. Potassium reported as supplemented. She was given Lasix as well. When she arrived to [facility] her O2 saturation was 88% and she was placed on 2 L nasal cannula. Her blood pressure was elevated at 180 7/81 and improved greatly after Lasix administration. WBC count 16.3, sodium 134, potassium 2.9, BUN 23, serum creatinine 1.14, troponin 0.040. EKG with normal sinus rhythm a right bundle preston block but no ST elevation. The patient denied chest pain. BNP 1580. Urinalysis grossly abnormal with 6-10 RBC, leukocyte esterase positive, greater than 100 WBC, bacteria 4+, quad viral screen negative. A chest x-ray revealed no acute cardiopulmonary abnormality. [id number]-[id number] and daughter Sammie are present and they report after the Lasix the patient has been breathing much better and the swelling in her legs have improved greatly. She was administered a dose of Lovenox for possible PE. Patient was admitted for further evaluation and treatment. Patient seen for a follow up visit. Patient seen in her room, sitting on the side of the bed, in no acute distress. Patient has on oxygen by [place]. Cardiology was consulted. Patient will have ECHO completed today. Patient will have VQ Scan completed today. Patient is on full dose Lovenox for treatment of possible PE. Patient continues on IV Ceftriaxone, urine cultures are pending. Patient reports her breathing is back to baseline and the edema in her legs is greatly decreased. Per cardiology we will stop the IV furosemide. Patient's potassium is 2.9, oral replacement ordered. Review of Systems Review of Systems: All systems reviewed & are unremarkable except as noted in HPI and below (Subjective) Exam Const: General: comfortable and no acute distress Other: A&O x3 HENMT: Mouth: Yes moist mucous membranes Eyes: Pupils: Equal, round and reactive pupils present Neck: Neck: supple Resp: Effort & Inspection: normal respiratory effort Other: Scant bibasilar crackles Cardio: Rate: regular rate Rhythm: regular rhythm Heart sounds: Murmur heart sound present (Systolic bilateral sternal borders) GI: Inspection: non-distended Skin: General skin exam: normal color and no rashes or lesions noted Neuro: Cranial nerves: Yes Equal, round and reactive pupils present Motor exam (neuro): 5/5 motor strength present throughout Extrem: Other: 1+ edema BLE, improved per patient and family Objective Data Vital Signs Vital Signs: Vital Signs - 24 hr 02/26/25 00:25 02/26/25 01:05 02/26/25 04:00 Temperature 97.8 F Pulse Rate 64 67 Respiratory Rate 18 Blood Pressure 102/50 L Pulse Oximetry 95 99 Oxygen Delivery Nasal Cannula Oxygen Flow Rate 2 Intake/Output Intake/Output: Intake & Output 02/23/25 02/24/25 02/25/25 02/26/25 23:59 23:59 23:59 23:59 Output Total 600 Balance -600 Meds/Results Medications: Active Medications Generic Name Dose Route Start Last Admin Trade Name Freq PRN Reason Stop Dose Admin Enoxaparin Sodium 80 mg 02/26/25 10:00 Enoxaparin 80 Mg/0.8 Ml Syringe SUB-Q Q12H [facility] Furosemide 20 mg 02/26/25 09:00 Furosemide Inj 40 Mg/4 Ml Vial IV PUSH BID [facility] Ceftriaxone Sodium 1 gm/ 50 mls @ 100 mls/hr 02/26/25 21:00 Sodium Chloride IVPB Q24H [facility] Latanoprost 1 drop 02/26/25 09:00 Latanoprost 0.005% Op Soln 2.5 Ml Btl EACH EYE DAILY [facility] Perflutren Lipid Microsphere 0 ml 02/26/25 02:40 Perflutren Lipid Microspheres 1.5 Ml Vial Diluted To 10 Ml Total Volume IV PUSH 03/01/25 02:40 ONCE PRN adequate visualization Protocol Potassium Chloride 40 meq 02/26/25 12:00 Potassium Chloride 20 Meq Er Tablet PO 02/26/25 12:01 ONCE ONE Potassium Chloride 40 meq 02/26/25 08:00 Potassium Chloride 20 Meq Er Tablet PO DAILY@0800 [facility] Labs Labs: Laboratory Results - last 24 hr 02/26/25 05:12 WBC 13.7 H RBC 4.08 L Hgb 12.4 Hct 37.0 MCV 90.7 MCH 30.4 MCHC 33.5 RDW 12.7 Plt Count 256 MPV 10.7 H Immature Gran % (Auto) 0.7 H Neut % (Auto) 76.5 H Lymph % (Auto) 13.3 L Irwin % (Auto) 7.4 Eos % (Auto) 1.8 Baso % (Auto) 0.3 Lymph # (Auto) 1.82 Irwin # (Auto) 1.0 H Eos # (Auto) 0.2 Baso # (Auto) 0.0 Abs Immat Gran (auto) 0.09 H Absolute Neuts (auto) 10.5 H Absolute Nucleated RBC 0.000 Nucleated RBC % 0.0 Sodium 134 L Potassium 2.9 L Chloride 97 L Carbon Dioxide 29 Anion Gap 8 BUN 22 H Creatinine 1.01 H Estim Creat Clear Calc 33 Estimated GFR 52 L Glucose 177 H Calcium 8.9 Magnesium 2.1 Procalcitonin 3.1 Quality VTE Prophylaxis VTE prophylaxis: pharmacologic ordered
--- NOTE | 2025-02-26 08:01 | PM.CNCAR ---
Assessment and Plan Assessment and plan (1) SOB (shortness of breath) on exertion: Code(s): R06.02 - Shortness of breath Status: Acute Assessment and Plan: Probably acute on chronic diastolic heart failure. May need to r/o PE. Improved after 1 dose of Lasix IV. CXR clear. Advise to limit total fluid intake to 1.5 l/day. Stop Lasix IV. Replete potassium. No further cardiac workup. (2) Aortic stenosis: Code(s): I35.0 - Nonrheumatic aortic (valve) stenosis Status: Acute Assessment and Plan: Stable. I think hospitalist ordered echo. (3) Hypertension: Code(s): I10 - Essential (primary) hypertension Status: Acute Assessment and Plan: Stable. (4) Dyslipidemia: Code(s): E78.5 - Hyperlipidemia, unspecified Status: Acute Assessment and Plan: On Atorvastatin. (5) Elevated troponin: Code(s): R79.89 - Other specified abnormal findings of blood chemistry Status: Acute Assessment and Plan: Slight and peaked at .04. Probably due to UTI /or diastolic HF. (6) UTI (urinary tract infection): Code(s): N39.0 - Urinary tract infection, site not specified Status: Acute Assessment and Plan: On antibiotics as per hospitalist. History of Present Illness History of Present Illness Consult date/time: 02/26/25 08:01 Reason For Visit: Acute Hypoxia Narrative: 84 yr old woman who is my regular cardiology patient and a patient of Dr. Rea presents to ER for sob. She has a history of aortic stenosis, hypertension, covid infection on 10/10/21, second hand smoke exposure. Her daughters are at bedside. Reports for last 2 weeks she had burning sensation upon urination. In last few days she admits to drinking more water since she felt hot. Then in last couple of days she felt sob and had edema of legs. She went to [place] [facility] and given dose of Lasix IV, and after that her breathing improved and edema resolved. Normally reports she can walk a few blocks without any problems, but noticed more DAVIS. Denies chest pain, orthopnea, PND, edema, dizziness, palpitations. Cardiovascular Procedures Echo/MUGA:: 11/23/24 Echo: EF 65-70%, mod LVH, grade I diastolic dysfunction (E/e' 16), mild LAE, mod (PETE 1.3 cm2), mild-mod AI, mild MAC, mild MR/TR, trace PI, RVSP 44 mmHg. 10/25/23 Echo: EF 65-70%, grade I diastolic dysfunction (E/e' 11), mild biatrial enlargement, trace AI/TR, mod-severe (PETE 1.1 cm2, mean 40 mmHg). 11/02/22 Echo: EF >70%, grade I diastolic dysfunction (E/e' 13), mild LAE, mod-severe (PETE 1.2 cm2, mean 48 mmHg), mild AI/PI, mild-mod TR, RVSP 43 mmHg. 11/14/21 Echo: EF 65-70%, mild LVH, grade I diastolic dysfunction (E/e' 10), mod (PETE 1.4 cm2), mild AI/MR/TR/PI, RVSP 48 mmHg. Electrophysiology:: 11/03/21 EKG: Sinus rhythm, first degree AV block, RBBB. Review of Systems Review of Systems: All systems reviewed & are unremarkable except as noted in HPI and below Constitutional: Constitutional: Reports as per HPI, Denies chills and Denies fever(s) Cardiovascular: Cardiovascular: Reports as per HPI, Denies chest pain and Denies irregular heart rhythm Respiratory: Respiratory: Reports as per HPI and Reports dyspnea Gastrointestinal: Gastrointestinal: Reports as per HPI and Denies abdominal pain Genitourinary: Genitourinary: Reports as per HPI and Reports dysuria Musculoskeletal: Musculoskeletal: Reports as per HPI Neurologic: Reports as per HPI, Denies dizziness and Denies syncope [facility] Past Medical History Medical History Glaucoma Hypertension Surgical History Surgical History H/O hysterectomy for benign disease Hx of cholecystectomy Social History Social History Smoking status: Never smoker Second hand tobacco smoke exposure: No Alcohol intake: former Substance use: never Lack of Transportation: No Lack of Food: Never True Current Housing: I Have Housing Concerned About Future Housing: No Difficulty Paying Gas/Electric Bills: No Difficulty Paying for Meds: No Currently Unemployed: No Education: Decline to Answer Difficulty w/ Childcare or Family Care: No Spiritual care concerns: No Meds Home Medications and Allergies Home Medications ?Medication ?Instructions ?Recorded ?Confirmed ?Type hydrochlorothiazide 25 mg tablet 25 mg PO HS 08/03/21 02/26/25 History latanoprost 0.005 % eye drops 1 drp EACH EYE DAILY 08/03/21 02/26/25 History montelukast 10 mg tablet 10 mg PO DAILY 08/03/21 02/26/25 History losartan 50 mg tablet 50 mg PO DAILY #30 tabs 12/14/24 02/26/25 Rx atorvastatin 40 mg tablet (Lipitor) 40 mg PO DAILY #30 tabs 12/18/24 Rx Allergies Allergy/AdvReac Type Severity Reaction Status Date / Time No Known Allergies Allergy Verified 02/25/25 18:55 Vital Signs Vital Signs - 24 hr 02/26/25 00:25 02/26/25 01:05 02/26/25 04:00 Temperature 97.8 F Pulse Rate 64 67 Respiratory Rate 18 Blood Pressure 102/50 L Pulse Oximetry 95 99 Oxygen Delivery Nasal Cannula Oxygen Flow Rate 2 Exam Const: General: cooperative, healthy appearing and comfortable Resp: Auscultation: clear to auscultation bilaterally, no crackles, no rales, no rhonchi and no wheezes Cardio: Rate: regular rate Rhythm: regular rhythm Heart sounds: no murmurs Peripheral pulses: dorsalis pedis present GI: GI Palp: No abdominal tenderness and Yes Soft to palpation Neuro: General: oriented to person, oriented to place and oriented to time Extrem: Right lower extremity: no edema Left lower extremity: no edema Results Labs and Meds 02/26/25 05:12 02/26/25 05:12 Lab results: CBC 02/26/25 Range/Units 05:12 WBC 13.7 H (4.5-10.0) K/mm3 RBC 4.08 L (4.2-5.4) M/mm3 Hgb 12.4 (12.0-15.0) g/dL Hct 37.0 (37.0-47.0) % Plt Count 256 (150-375) k/mm3 Lymph # (Auto) 1.82 (0.9-3.2) K/mm3 Mckinley # (Auto) 1.0 H (0.1-0.6) K/mm3 Eos # (Auto) 0.2 (0-0.3) K/mm3 Baso # (Auto) 0.0 (0.0-0.1) K/mm3 Comprehensive Metabolic Panel 02/26/25 Range/Units 05:12 Sodium 134 L (137-145) mmol/L Potassium 2.9 L (3.4-5.0) mmol/L Chloride 97 L (98-107) mmol/L Carbon Dioxide 29 (22-30) mmol/L BUN 22 H (7-17) mg/dL Creatinine 1.01 H (0.7-1.0) mg/dL Glucose 177 H (65-110) mg/dL Calcium 8.9 (8.4-10.2) mg/dL Intake and Output 02/25/25 02/26/25 02/26/25 23:59 07:59 15:59 Output Total 600 Balance -600 Output: Urine 600 Patient Weight 02/26/25 23:59 Weight 79.9 kg
[2025-02-26] MEDS: LATANOPROST 0.005% OP SOLN 2.5 ML BTL 1 DROP EACH EYE (08:15)
[2025-02-26] MEDS: FUROSEMIDE INJ 40 MG/4 ML VIAL 20 MG IV PUSH (08:16)
[2025-02-26] MEDS: ENOXAPARIN 80 MG/0.8 ML SYRINGE SUB-Q ×2 (08:16→21:55)
[2025-02-26] MEDS: POTASSIUM CHLORIDE 20 MEQ ER TABLET 40 MEQ PO ×2 (12:02→16:37)
[2025-02-26] MEDS: cefTRIAXone 1 GM in SODIUM CHLORIDE 0.9% IV 50 ML 100 ML IVPB (21:55)
[2025-02-27 00:03] VITALS: PULSE 77
[2025-02-27 04:05] VITALS: PULSE 67
[2025-02-27 05:38] LABS: Hematocrit 38.9 % (37.0-47.0); Hemoglobin 12.8 g/dL (12.0-15.0); Immature Granulocyte Percent A 0.8 % (0-0.5); Lymphocytes Absolute Auto 1.82 K/mm3 (0.9-3.2); Mean Corpuscular HGB Conc 32.9 g/dl (32-36); Mean Corpuscular Hemoglobin 30.3 pg (26-34); Mean Corpuscular Volume 92.0 fl (80-100); Nucleated Red Blood Cells Absolute Auto 0.000 K/mm3 (0.0-0.012); Nucleated Red Blood Cells Perc 0.0 % (0.0-0.2); Platelet Count Result 291 k/mm3 (150-375); Red Blood Count 4.23 M/mm3 (4.2-5.4); White Blood Count 10.5 K/mm3 (4.5-10.0)
[2025-02-27 05:59] LABS: Magnesium 1.9 mg/dL (1.6-2.3)
[2025-02-27 06:00] VITALS: BP 114/51; PULSE 64; RESP 16; TEMP 36.1; O2SAT 94
[2025-02-27 06:01] LABS: Alanine Aminotransferase 22 U/L (6-35); Albumin Level 3.4 g/dL (3.5-5.1); Alkaline Phosphatase 199 U/L (38-126); Anion Gap 7 mmol/L (4-12); Aspartate Amino Transferase 29 U/L (14-36); Bilirubin,Total 0.7 mg/dL (0.2-1.3); Blood Urea Nitrogen 18 mg/dL (7-17); Calcium 9.1 mg/dL (8.4-10.2); Carbon Dioxide 28 mmol/L (22-30); Chloride 100 mmol/L (98-107); Estimated CRCL calculation 36 ml/min; Estimated Glomerular Filt Rate 58; Glucose 179 mg/dL (65-110); Sodium 135 mmol/L (137-145); Total Protein 6.6 g/dL (6.3-8.2)
[2025-02-27 06:09] LABS: Potassium 3.7 mmol/L (3.4-5.0)
--- NOTE | 2025-02-27 07:23 | P.PNCA_ITS ---
Progress Note: A&P Assessment and Plan (1) SOB (shortness of breath) on exertion: Code(s): R06.02 - Shortness of breath Status: Acute Assessment and Plan: Due to bilateral PE on V/Q scan on 02/26/25. Has chronic diastolic dysfunction. Improved after 1 dose of Lasix IV. CXR clear. Advise to limit total fluid intake to 1.5 l/day. No further cardiac workup. Will sign off, please call with any questions. (2) Aortic stenosis: Code(s): I35.0 - Nonrheumatic aortic (valve) stenosis Status: Acute Assessment and Plan: Stable. 02/26/25 Echo: EF >70%, mod LVH, grade I diastolic dysfunction (E/e' 13), mod-severe (PETE 1.5 cm2, mean 42 mmHg, 4.4 m/s), mild AI, mod MAC, mild TR. (3) Hypertension: Code(s): I10 - Essential (primary) hypertension Status: Acute Assessment and Plan: Stable. (4) Dyslipidemia: Code(s): E78.5 - Hyperlipidemia, unspecified Status: Acute Assessment and Plan: On Atorvastatin. (5) Elevated troponin: Code(s): R79.89 - Other specified abnormal findings of blood chemistry Status: Acute Assessment and Plan: Slight and peaked at .04. Probably due to UTI and PE. (6) UTI (urinary tract infection): Code(s): N39.0 - Urinary tract infection, site not specified Status: Acute Assessment and Plan: On antibiotics as per hospitalist. (7) Pulmonary emboli: Code(s): I26.99 - Other pulmonary embolism without acute cor pulmonale Status: Acute Assessment and Plan: On VQ scan. On therapeutic Lovenox. Transition to DOAC upon discharge. Will leave this up to hospitalist. Subjective Date/time seen: 02/27/25 07:23 Interval history: No chest pain or sob. Exam Const: General: cooperative, healthy appearing and comfortable Orientation/consciousness: oriented to person, oriented to place and oriented to time Resp: Auscultation: clear to auscultation bilaterally, no crackles, no rales, no rhonchi and no wheezes Cardio: Rate: regular rate Rhythm: regular rhythm Heart sounds: Murmur heart sound present (II/ systolic murmur) Peripheral pulses: dorsalis pedis present Neuro: General: oriented to person, oriented to place and oriented to time Extrem: Right lower extremity: no edema Left lower extremity: no edema Objective Data Vital Signs Vital Signs: Vital Signs - 24 hr 02/26/25 08:00 02/26/25 12:00 02/26/25 13:13 Temperature Pulse Rate 75 77 Respiratory Rate Blood Pressure Pulse Oximetry 97 Oxygen Delivery Nasal Cannula Oxygen Flow Rate 1 02/26/25 13:50 02/26/25 14:00 02/26/25 16:00 Temperature 97.5 F L Pulse Rate 69 65 Respiratory Rate 18 Blood Pressure 125/67 Pulse Oximetry 91 93 Oxygen Delivery Room Air Oxygen Flow Rate 02/26/25 20:00 02/26/25 20:05 02/26/25 22:21 Temperature 98.7 F Pulse Rate 74 68 Respiratory Rate 16 Blood Pressure 125/51 L Pulse Oximetry 93 93 Oxygen Delivery Room Air Oxygen Flow Rate 02/27/25 00:03 02/27/25 04:05 Temperature Pulse Rate 77 67 Respiratory Rate Blood Pressure Pulse Oximetry Oxygen Delivery Oxygen Flow Rate Intake/Output Intake/Output: Intake & Output 02/24/25 02/25/25 02/26/25 02/27/25 23:59 23:59 23:59 23:59 Intake Total 1518 Output Total 1200 Balance 318 Meds/Results Medications: Active Medications Generic Name Dose Route Start Last Admin Trade Name Freq PRN Reason Stop Dose Admin Enoxaparin Sodium 80 mg 02/26/25 10:00 02/26/25 21:55 Enoxaparin 80 Mg/0.8 Ml Syringe SUB-Q 80 mg Q12H SHAHEEN Administration Ceftriaxone Sodium 1 gm/ 50 mls @ 100 mls/hr 02/26/25 21:00 02/26/25 22:25 Sodium Chloride IVPB Infused Q24H SHAHEEN Infusion Latanoprost 1 drop 02/26/25 09:00 02/26/25 08:15 Latanoprost 0.005% Op Soln 2.5 Ml Btl EACH EYE 1 drop DAILY SHAHEEN Administration Perflutren Lipid Microsphere 0 ml 02/26/25 02:40 Perflutren Lipid Microspheres 1.5 Ml Vial Diluted To 10 Ml Total Volume IV PUSH 03/01/25 02:40 ONCE PRN adequate visualization Protocol Potassium Chloride 40 meq 02/27/25 08:00 Potassium Chloride 20 Meq Er Tablet PO DAILY@0800 [facility] Radiology Results: ITS Impressions Pulmonary Perfusion Imaging 02/26/25 14:57 IMPRESSION: 1. High probability for pulmonary embolism. Venous Doppler Study 02/26/25 18:28 IMPRESSION: 1: No lower extremity deep venous thrombosis. Labs Labs: Laboratory Results - last 24 hr 02/27/25 05:11 WBC 10.5 H RBC 4.23 Hgb 12.8 Hct 38.9 MCV 92.0 MCH 30.3 MCHC 32.9 RDW 12.6 Plt Count 291 MPV 10.2 Immature Gran % (Auto) 0.8 H Neut % (Auto) 70.7 Lymph % (Auto) 17.3 L [place] % (Auto) 8.2 Eos % (Auto) 2.5 Baso % (Auto) 0.5 Lymph # (Auto) 1.82 [place] # (Auto) 0.9 H Eos # (Auto) 0.3 Baso # (Auto) 0.1 Abs Immat Gran (auto) 0.08 H Absolute Neuts (auto) 7.4 H Absolute Nucleated RBC 0.000 Nucleated RBC % 0.0 Sodium 135 L Potassium 3.7 Chloride 100 Carbon Dioxide 28 Anion Gap 7 BUN 18 H Creatinine 0.92 Estim Creat Clear Calc 36 Estimated GFR 58 L Glucose 179 H Calcium 9.1 Magnesium 1.9 Total Bilirubin 0.7 AST 29 ALT 22 Alkaline Phosphatase 199 H Total Protein 6.6 Albumin 3.4 L
--- NOTE | 2025-02-27 07:43 | PM.IMPN ---
Progress Note: A&P Assessment and Plan (1) Aortic stenosis: Code(s): I35.0 - Nonrheumatic aortic (valve) stenosis Status: Acute Assessment and Plan: cardiology consulted repeat ECHO ordered (2) Hypertension: Code(s): I10 - Essential (primary) hypertension Status: Acute Assessment and Plan: monitor BP (3) Elevated troponin: Code(s): R79.89 - Other specified abnormal findings of blood chemistry Status: Acute Assessment and Plan: appears to be due to demand ischemia denies chest pain (4) Acute hypoxemic respiratory failure: Code(s): J96.01 - Acute respiratory failure with hypoxia Status: Acute Assessment and Plan: on O2 by NC, wean as tolerated s/p IV furosemide VQ scan to rule out PE full dose Lovenox patient reports dyspnea resolved after IV diuresis (5) UTI (urinary tract infection): Code(s): N39.0 - Urinary tract infection, site not specified Status: Acute Assessment and Plan: UA with 6-10 RBC, leukocyte esterase positive, greater than 100 WBC, bacteria 4+ f/u urine cultures IV Rocephin AM labs (6) Leukocytosis: Code(s): D72.829 - Elevated white blood cell count, unspecified Status: Acute Assessment and Plan: suspect due to UTI improving IV Rocephin AM labs (7) Acute on chronic diastolic (congestive) heart failure: Code(s): I50.33 - Acute on chronic diastolic (congestive) heart failure Status: Acute Assessment and Plan: patient presented with dyspnea and BLE edema cardiology consulted ECHO ordered IV furosemide, cardiology recommends to d/c Subjective Date/time seen: 02/27/25 07:43 Interval history: No chest pain or sob. Review of Systems Review of Systems: All systems reviewed & are unremarkable except as noted in HPI and below (Subjective) Exam Const: General: comfortable and no acute distress Other: A&O x3 HENMT: Mouth: Yes moist mucous membranes Eyes: Pupils: Equal, round and reactive pupils present Neck: Neck: supple Resp: Effort & Inspection: normal respiratory effort Other: Scant bibasilar crackles Cardio: Rate: regular rate Rhythm: regular rhythm Heart sounds: Murmur heart sound present (Systolic bilateral sternal borders) GI: Inspection: non-distended Skin: General skin exam: normal color and no rashes or lesions noted Neuro: Cranial nerves: Yes Equal, round and reactive pupils present Motor exam (neuro): 5/5 motor strength present throughout Extrem: Other: 1+ edema BLE, improved per patient and family Objective Data Vital Signs Vital Signs: Vital Signs - 24 hr 02/26/25 08:00 02/26/25 12:00 02/26/25 13:13 Temperature Pulse Rate 75 77 Respiratory Rate Blood Pressure Pulse Oximetry 97 Oxygen Delivery Nasal Cannula Oxygen Flow Rate 1 02/26/25 13:50 02/26/25 14:00 02/26/25 16:00 Temperature 97.5 F L Pulse Rate 69 65 Respiratory Rate 18 Blood Pressure 125/67 Pulse Oximetry 91 93 Oxygen Delivery Room Air Oxygen Flow Rate 02/26/25 20:00 02/26/25 20:05 02/26/25 22:21 Temperature 98.7 F Pulse Rate 74 68 Respiratory Rate 16 Blood Pressure 125/51 L Pulse Oximetry 93 93 Oxygen Delivery Room Air Oxygen Flow Rate 02/27/25 00:03 02/27/25 04:05 02/27/25 06:00 Temperature 97.0 F L Pulse Rate 77 67 64 Respiratory Rate 16 Blood Pressure 114/51 L Pulse Oximetry 94 Oxygen Delivery Oxygen Flow Rate Intake/Output Intake/Output: Intake & Output 02/24/25 02/25/25 02/26/25 02/27/25 23:59 23:59 23:59 23:59 Intake Total 1518 400 Output Total 1200 Balance 318 400 Meds/Results Medications: Active Medications Generic Name Dose Route Start Last Admin Trade Name Freq PRN Reason Stop Dose Admin Apixaban 10 mg 02/27/25 09:00 Apixaban 5 Mg Tablet PO Q12HR SHAHEEN Apixaban 5 mg 03/06/25 09:00 Apixaban 5 Mg Tablet PO Q12HR [facility] Ceftriaxone Sodium 1 gm/ 50 mls @ 100 mls/hr 02/26/25 21:00 02/26/25 22:25 Sodium Chloride IVPB Infused Q24H [facility] Infusion Latanoprost 1 drop 02/26/25 09:00 02/26/25 08:15 Latanoprost 0.005% Op Soln 2.5 Ml Btl EACH EYE 1 drop DAILY SHAHEEN Administration Perflutren Lipid Microsphere 0 ml 02/26/25 02:40 Perflutren Lipid Microspheres 1.5 Ml Vial Diluted To 10 Ml Total Volume IV PUSH 03/01/25 02:40 ONCE PRN adequate visualization Protocol Potassium Chloride 40 meq 02/27/25 08:00 Potassium Chloride 20 Meq Er Tablet PO DAILY@0800 [facility] Radiology Results: ITS Impressions Pulmonary Perfusion Imaging 02/26/25 14:57 IMPRESSION: 1. High probability for pulmonary embolism. Venous Doppler Study 02/26/25 18:28 IMPRESSION: 1: No lower extremity deep venous thrombosis. Labs Labs: Laboratory Results - last 24 hr 02/27/25 05:11 WBC 10.5 H RBC 4.23 Hgb 12.8 Hct 38.9 MCV 92.0 MCH 30.3 MCHC 32.9 RDW 12.6 Plt Count 291 MPV 10.2 Immature Gran % (Auto) 0.8 H Neut % (Auto) 70.7 Lymph % (Auto) 17.3 L [place] % (Auto) 8.2 Eos % (Auto) 2.5 Baso % (Auto) 0.5 Lymph # (Auto) 1.82 [place] # (Auto) 0.9 H Eos # (Auto) 0.3 Baso # (Auto) 0.1 Abs Immat Gran (auto) 0.08 H Absolute Neuts (auto) 7.4 H Absolute Nucleated RBC 0.000 Nucleated RBC % 0.0 Sodium 135 L Potassium 3.7 Chloride 100 Carbon Dioxide 28 Anion Gap 7 BUN 18 H Creatinine 0.92 Estim Creat Clear Calc 36 Estimated GFR 58 L Glucose 179 H Calcium 9.1 Magnesium 1.9 Total Bilirubin 0.7 AST 29 ALT 22 Alkaline Phosphatase 199 H Total Protein 6.6 Albumin 3.4 L Quality VTE Prophylaxis VTE prophylaxis: pharmacologic ordered
[2025-02-27 08:00] VITALS: PULSE 71
[2025-02-27] MEDS: APIXABAN 5 MG TABLET 10 MG PO (10:13)
[2025-02-27] MEDS: LATANOPROST 0.005% OP SOLN 2.5 ML BTL 1 DROP EACH EYE (10:13)
[2025-02-27] MEDS: POTASSIUM CHLORIDE 20 MEQ ER TABLET 40 MEQ PO (10:13)
[2025-02-27 12:00] VITALS: PULSE 68
--- NOTE | 2025-02-27 12:01 | PM.DS ---
DS: Admitting Diagnosis Discharge Date 02/27/2025 Admitting Diagnosis UTI DS: Discharge Diagnosis Discharge Diagnosis (1) Aortic stenosis: Code(s): I35.0 - Nonrheumatic aortic (valve) stenosis Status: Acute Assessment and Plan: cardiology consulted repeat ECHO ordered (2) Hypertension: Code(s): I10 - Essential (primary) hypertension Status: Acute Assessment and Plan: monitor BP (3) Elevated troponin: Code(s): R79.89 - Other specified abnormal findings of blood chemistry Status: Acute Assessment and Plan: appears to be due to demand ischemia denies chest pain (4) Acute hypoxemic respiratory failure: Code(s): J96.01 - Acute respiratory failure with hypoxia Status: Acute Assessment and Plan: on O2 by NC, wean as tolerated s/p IV furosemide s/p VQ scan - high probability for PE s/p full dose Lovenox started on PO Eliquis patient reports dyspnea resolved after IV diuresis patient on room air (5) UTI (urinary tract infection): Code(s): N39.0 - Urinary tract infection, site not specified Status: Acute Assessment and Plan: UA with 6-10 RBC, leukocyte esterase positive, greater than 100 WBC, bacteria 4+ f/u urine cultures IV Rocephin discharge home with 3 days of PO cephalexin final urine cultures will be followed (6) Leukocytosis: Code(s): D72.829 - Elevated white blood cell count, unspecified Status: Acute Assessment and Plan: suspect due to UTI IV Rocephin resolved (7) Acute on chronic diastolic (congestive) heart failure: Code(s): I50.33 - Acute on chronic diastolic (congestive) heart failure Status: Acute Assessment and Plan: patient presented with dyspnea and BLE edema cardiology consulted ECHO reviewed IV furosemide, cardiology recommends to d/c patients dyspnea improved after IV Lasix continue home HCTZ on discharge (8) Pulmonary emboli: Code(s): I26.99 - Other pulmonary embolism without acute cor pulmonale Status: Acute Assessment and Plan: s/p VQ Scan with high probability for pulmonary embolism BLE venous dopplers negative for DVT s/p full dose Lovenox started on Eliquis DS: Summary Hospital Course Reason for hospitalization: Dyspnea Hospital Course: Patient presented with complaints of dyspnea and bilateral lower extremity edema. Patient was treated with IV furosemide and oxygen therapy. Patients WBC count was 16k and UA consistent with acute cystitis. Patient was treated with IV ceftriaxone. Urine cultures were sent and still pending at time of discharge. Cardiology was consulted, echo completed during admission. Patient was treated with full dose Lovenox and a VQ scan was completed. VQ scan showed a high probability for a pulmonary embolism and patient was switched to Eliquis prior to discharge. Patients oxygen was weaned and her breathing improved after two doses of IV furosemide. Patient was on room air and respiratory status was stable. Patient's white blood cell count improved. Patient was ready for discharge. Patient was discharged home on PO cephalexin for 3 days. Her urine culture will be followed after discharge. Patient will follow up with PCP within 2 weeks of discharge and cardiology as scheduled. Time Spent with Patient Time attestation: Total time spent providing and/or coordinating discharge services: Time spent: Greater than 30 minutes Exam Const: Other: A&O x3 HENMT: Mouth: Yes moist mucous membranes Eyes: General: appearance normal, both eyes and all related structures Neck: Neck: supple Resp: Other: Scant bibasilar crackles Cardio: Rate: regular rate Rhythm: regular rhythm GI: GI Palp: Yes Soft to palpation Auscultation: normal bowel sounds Skin: General skin exam: normal color and no rashes or lesions noted Extrem: Other: 1+ edema BLE, improved per patient and family Psych: Mental Status: mental status grossly normal DS: Data Data Completed and Pending Labs on day of discharge: Labs from last 24 hours 02/27/25 05:11 WBC 10.5 H RBC 4.23 Hgb 12.8 Hct 38.9 MCV 92.0 MCH 30.3 MCHC 32.9 RDW 12.6 Plt Count 291 MPV 10.2 Immature Gran % (Auto) 0.8 H Neut % (Auto) 70.7 Lymph % (Auto) 17.3 L [place] % (Auto) 8.2 Eos % (Auto) 2.5 Baso % (Auto) 0.5 Lymph # (Auto) 1.82 [place] # (Auto) 0.9 H Eos # (Auto) 0.3 Baso # (Auto) 0.1 Abs Immat Gran (auto) 0.08 H Absolute Neuts (auto) 7.4 H Absolute Nucleated RBC 0.000 Nucleated RBC % 0.0 Sodium 135 L Potassium 3.7 Chloride 100 Carbon Dioxide 28 Anion Gap 7 BUN 18 H Creatinine 0.92 Estim Creat Clear Calc 36 Estimated GFR 58 L Glucose 179 H Calcium 9.1 Magnesium 1.9 Total Bilirubin 0.7 AST 29 ALT 22 Alkaline Phosphatase 199 H Total Protein 6.6 Albumin 3.4 L Discharge Plan Discharge Attending physician on discharge: Gina Carolina Consulting providers: Leroy Cheung; Medardo Ramey; Quinten Gutierres Discharging Clinician: Anais Wilson Patient Disposition: Home Activity: as tolerated Diet: heart healthy and low sodium Patient Instructions: Antibiotic Form, Low-Sodium Diet (GEN), Blood Thinners (GEN) Patient Language: Nigerian Stand Alone Forms: General Discharge Information Follow-up/Referrals: Leroy Cheung DO [Physician, Cardiology] Referral Note: call to schedule a follow up appointment within 1-2 weeks of discharge Jovanny Rea MD [Primary Care Provider, Internal Medicine] Referral Note: call for an appointment to be seen within 1-2 weeks of discharge Discharge Medications: [facility] DVT-PE Treat 30D Start 5 mg (74 tabs) tablets,dose pack See Rx Instructions .ROUTE .COMPLEX Qty: 74 0RF Rx Instructions: orally per package directions cephalexin 500 mg capsule 500 mg PO Q12H Qty: 6 0RF Continued latanoprost 0.005 % drops 1 drp EACH EYE DAILY montelukast 10 mg tablet 10 mg PO DAILY hydrochlorothiazide 25 mg tablet 25 mg PO HS losartan 50 mg tablet 50 mg PO DAILY Qty: 30 5RF brimonidine 0.1 % drops 1 drp EACH EYE DAILY Women's 50 Plus Multivitamin 400 mcg-500 mg calcium-20 mcg tablet PO DAILY Date of admission: 02/26/25 02:39 Primary Care Provider: Jovanny Rea Admitting Provider: Gina Carolina Attending physician on admission: Anais Wilson Condition: Stable Quality VTE Prophylaxis VTE prophylaxis: pharmacologic ordered
--- NOTE | 2025-03-02 07:34 | PC.NURSE ---
Urine culture growing E. Coli. Pt sent home on Cephalexin. Cx is susceptible to this med.
== END 2025-02-27 13:30 | disposition home or self-care (01) | DRG 689 ==
PROVIDERS: Admitting Provider General Practice; PCP Internal Medicine; Visit Provider Nurse Practitioner Adult Health
DX: N30.00 Acute cystitis without hematuria (principal); I26.99 Other pulmonary embolism without acute cor pulmonale; I50.33 Acute on chronic diastolic (congestive) heart failure; J96.01 Acute respiratory failure with hypoxia; I11.0 Hypertensive heart disease with heart failure; I35.0 Nonrheumatic aortic (valve) stenosis; D72.829 Elevated white blood cell count, unspecified; E78.5 Hyperlipidemia, unspecified; H40.9 Unspecified glaucoma; R79.89 Other specified abnormal findings of blood chemistry; Z66 Do not resuscitate; Z90.49 Acquired absence of other specified parts of digestive tract
CPT/HCPCS: 36415; 78582; 80048; 80053; 83735; 84145; 85025; 93306; 93970; A9270; A9540; A9558; J0696; J1650; J1938

== ENCOUNTER 2025-04-17 09:13 | Outpatient (CLI) | payer MEDICARE, OTHER, SELFPAY ==
--- NOTE | ~2025-04-17 | CT_ITS ---
CTA CHEST CLINICAL HISTORY: HEART DISEASE . COMPARISON: Chest x-ray 02/25/2025 TECHNIQUE: Helical CTA performed from thoracic inlet to upper abdomen 100 mL Omnipaque 350 Coronal, sagittal reformats. Multiplanar MIPS CT images acquired with automatic exposure control for dose reduction DLP: 246 mGy-cm FINDINGS: Pulmonary arteries: No PE. Thoracic Aorta: No dissection or aneurysm. Atherosclerotic disease. Heart/pericardium: Cardiomegaly. Coronary artery calcifications. RV/LV ratio: Normal. Lungs/Pleura: Mosaic attenuation. Calcified granuloma posterior right lower lobe Tracheobronchial tree: Patent. Nodes: No enlarged nodes. Bones: No acute bony abnormality. Soft tissues: Unremarkable. Visualized upper abdomen: Hepatomegaly, with steatosis. Small hiatal hernia. IMPRESSION: 1. Lung findings suggest small airways or small vessel disease. Less likely pneumonitis or edema. 2. No PE or other acute cardiopulmonary abnormality. Reviewed, dictated and finalized at location R. IMPRESSION: 1. Lung findings suggest small airways or small vessel disease. Less likely pn eumonitis or edema. 2. No PE or other acute cardiopulmonary abnormality.
--- OUTSIDE RECORDS SUMMARY | 2025-04-17 10:03 | XMS_ITS | Clinical Summary ---
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 Gender Identity Not on file Sexual Orientation Not on file Obstetrics History Last Filed Vital Signs Vital Sign Reading Time Taken Comments Blood Pressure 160/80 07/16/2023 11:37 AM DISTANCE LEARNING TECHNICIAN Pulse 73 07/16/2023 11:37 AM DISTANCE LEARNING TECHNICIAN Temperature 36.9 C (98.5 F) 07/16/2023 11:37 AM DISTANCE LEARNING TECHNICIAN Respiratory Rate 16 07/16/2023 11:37 AM DISTANCE LEARNING TECHNICIAN Oxygen Saturation 95% 07/16/2023 11:37 AM DISTANCE LEARNING TECHNICIAN Inhaled Oxygen Concentration - - Weight 79.4 kg (175 lb) 07/16/2023 9:38 AM DISTANCE LEARNING TECHNICIAN Height 160 cm (5' 3) 07/16/2023 9:38 AM DISTANCE LEARNING TECHNICIAN Body Mass Index 31 07/16/2023 9:38 AM DISTANCE LEARNING TECHNICIAN Plan of Treatment Health Maintenance Due Date [...] Td or Tdap) 03/04/2031 03/04/2021 Insurance MEDICARE [employer] MEDICARE FOR LIFE Advance Directives For more information, please contact: [phone] * Full Code (Latest Code Status on File) Date Activated Date Inactivated Comments 07/16/2023 9:29 AM 07/16/2023 4:28 PM * Full Code Date Activated Date Inactivated Comments 07/16/2023 9:29 AM 07/16/2023 9:29 AM * Full Code Date Activated Date Inactivated Comments 04/12/2018 7:59 AM 04/12/2018 11:35 AM * Full Code Date Activated Date Inactivated Comments 04/12/2018 7:59 AM 04/12/2018 7:59 AM Care 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
[2025-04-17 10:26] LABS: Estimated Glomerular Filt Rate 54
== END 2025-04-17 09:14 | disposition home or self-care (01) ==
LOC: CHSIMG 09:17
PROVIDERS: PCP Internal Medicine; Visit Provider Internal Medicine Hematology
DX: I26.99 Other pulmonary embolism without acute cor pulmonale (principal); R92.8 Other abnormal and inconclusive findings on diagnostic imaging of breast
CPT/HCPCS: 71275; Q9967